=== PATIENT | female | born 1955 | race Caucasian/White ===

== ENCOUNTER → 2018-03-16 08:33 | Outpatient (CLI) | payer OTHER, SELFPAY ==
--- NOTE | 2018-03-16 | DI.MG.S_ITS ---
BILATERAL DIGITAL SCREENING MAMMOGRAM 3D/2D WITH CAD: 03/16/2018 CLINICAL: Routine screening. Family history of breast cancer. Comparison is made to exams dated: 01/29/2017 mammogram, 01/03/2016 mammogram, and 12/27/2014 mammogram - [facility]. There are scattered fibroglandular elements in both breasts. Current study was also evaluated with a Computer Aided Detection (CAD) system. No significant masses, calcifications, or other findings are seen in either breast. There has been no significant interval change. IMPRESSION: NEGATIVE There is no mammographic evidence of malignancy. A 1 year screening mammogram is recommended. This exam was interpreted at Station ID: [id number]. NOTE: For mammograms, a report in lay terms will be sent to the patient. Approximately 15% of breast malignancies will not be visualized mammographically. In the management of a palpable breast mass, a negative mammogram must not discourage biopsy of a clinically suspicious lesion. Electronically Signed By: Ander ortiz/polly:03/16/2018 09:26:04 letter sent: Normal Exam ACR BI-RADS Category 1: Negative [id number]
== END ==
PROVIDERS: Family Provider Family Medicine; PCP Family Medicine; Visit Provider Family Medicine
DX: Z12.31 Encounter for screening mammogram for malignant neoplasm of breast (principal); Z80.3 Family history of malignant neoplasm of breast
CPT/HCPCS: 77063; 77067

== ENCOUNTER 2018-08-09 19:58 | Inpatient (IN) | payer OTHER, SELFPAY ==
--- NOTE | 2018-08-09 | DI.RAD.S_ITS ---
PROCEDURE: XR PELVIS 1-2V INDICATIONS: fall, left femur fracture TECHNIQUE: 2 view(s) of the pelvis acquired. COMPARISON: None. FINDINGS: Bones: Left femoral shaft fracture with overriding and displacement. No acute pelvic fractures or dislocations. Subacute to chronic left pelvic fracture at the junction between the acetabulum and ischium.. Soft tissues: Visualized bowel gas pattern is normal. No suspicious soft tissue calcifications. IMPRESSION: Left femoral shaft fracture. Subacute left anterior pelvic fracture. No acute pelvic fractures or dislocations. Dictated by: Herb Rodriguez M.D. on 08/09/2018 at 21:16 Approved by: Herb Rodriguez M.D. on 08/09/2018 at 21:17
[2018-08-09 20:07] VITALS: BP 155/76; PULSE 88; RESP 22; TEMP 36.6; O2SAT 95; BMI 166.5
--- NOTE | 2018-08-09 20:28 | PC.NURSE ---
patient with shortening and internal rotation of LLE. +mid shaft left femur deformity. Movement limited by pain only. Pt states she does not want anything for pain at this time. Also c/o right shoulder pain. Pt with good movement of right shoulder and CMS intact in RUE.
--- NOTE | 2018-08-09 20:39 | DI.RAD.S_ITS ---
PROCEDURE: XR SHOULDER RT MIN 2V INDICATIONS: fall TECHNIQUE: 2 views of the shoulder were acquired. COMPARISON: None. FINDINGS: Bones: No shoulder fractures or dislocations. Mildly displaced acute fractures of the posterior lateral right third and fourth ribs. No suspicious bony lesions. Visualized ribs appear intact. Soft tissues: No suspicious soft tissue calcifications. IMPRESSION: No shoulder fracture. 2 right rib fractures. Dictated by: Herb Rodriguez M.D. on 08/09/2018 at 21:21 Approved by: Herb Rodriguez M.D. on 08/09/2018 at 21:22
--- NOTE | 2018-08-09 20:39 | DI.RAD.S_ITS ---
PROCEDURE: XR FEMUR LT MIN 2V INDICATIONS: fall TECHNIQUE: AP and lateral views of the femur were acquired. COMPARISON: None. FINDINGS: Bones: Mid shaft femoral fracture with displacement and overriding. Subacute left anterior pelvic fracture at the junction between the acetabulum and left ischium. Soft tissues: No suspicious soft tissue calcifications or masses. IMPRESSION: Acute mid shaft femoral fracture with displacement and overriding. Subacute left anterior pelvic fracture. Dictated by: Herb Rodriguez M.D. on 08/09/2018 at 21:20 Approved by: Herb Rodriguez M.D. on 08/09/2018 at 21:21
[2018-08-09 21:13] LABS: Blood Urea Nitrogen 27 mg/dL (7-17); Calcium 9.3 mg/dL (8.4-10.2); Carbon Dioxide 26 mmol/L (22-32); Chloride 104 mmol/L (98-107); Estimated Glomerular Filt Rate > 60.0 mL/min (>60); Glucose 115 mg/dL (80-110); HEMOLYSIS 40 (0-50); Potassium 3.8 mmol/L (3.4-5.1); Sodium 139 mmol/L (137-145)
--- NOTE | 2018-08-09 21:16 | ED.FALL ---
HPI - Fall General Chief Complaint: Fall Stated Complaint: GLF Time Seen by Provider: 08/09/18 20:03 Source: patient, family and EMS Mode of arrival: EMS Limitations: no limitations History of Present Illness HPI Narrative: 63-year-old female nonsmoker, with history of osteoporosis and otherwise healthy presents with a chief complaint of severe left hip and right shoulder pain after trip and fall and from ground level just prior to arrival in her kitchen She denies any head neck or back pain. She has significant pain with any range of motion but denies any numbness, tingling or weakness she denies any prodromal symptoms such as dizziness, weakness or lightheadedness nor any chest pain or palpitations prior to the fall. She purely tripped MD complaint: fall Onset (ago): minute(s) Fall from: standing Fall witnessed: yes, by family Place fall occurred: home Prolonged down time: no Symptoms prior to fall: none Context: tripped/slipped Location of injury - extremities: Left: thigh Severity: moderate Quality: sharp Associated symptoms (after fall): denies Related Data Home Medications Medication Instructions Recorded Confirmed celecoxib 200 mg PO BID 08/09/18 08/09/18 gabapentin 300 mg PO ONCE HS 08/09/18 08/09/18 Allergies Allergy/AdvReac Type Severity Reaction Status Date / Time amoxicillin Allergy Intermediate Rash Verified 08/10/18 15:47 azithromycin Allergy Intermediate Rash Verified 08/10/18 15:47 latex Allergy Intermediate Rash Verified 08/10/18 15:47 Review of Systems Constitutional Denies chills, Denies fever(s), Denies lethargy and Denies weakness Eyes Denies change in vision, Denies eye discharge, Denies irritation and Denies loss of vision ENT Ears, Nose, Mouth, and Throat: Denies change in voice, Denies neck pain and Denies sore throat Cardiovascular Denies chest pain, Denies irregular heart rhythm, Denies lightheadedness, Denies palpitations, Denies dyspnea, Denies dyspnea on exertion and Denies orthopnea Respiratory Denies cough, Denies dyspnea, Denies dyspnea on exertion and Denies wheezing Gastrointestinal Gastrointestinal: Denies abdominal pain, Denies change in bowel habits, Denies diarrhea, Denies nausea and Denies vomiting Genitourinary Denies hematuria, Denies flank pain, Denies urinary incontinence and Denies urinary urgency Musculoskeletal Reports joint swelling, Reports limited range of motion and Denies neck pain Integumentary/Breasts Denies pruritus, Denies erythema, Denies rash and Denies wounds Neurologic Denies confusion, Denies loss of vision and Denies weakness Psychiatric Denies anxiety, Denies confusion, Denies depression, Denies homicidal ideation and Denies suicidal ideation Endocrine Denies palpitations Hematologic/Lymphatic Denies easy bruising Allergic/Immunologic Denies wheezing Exam Narrative Exam Narrative: GENERAL: 63-year-old female appears younger than her stated age, resting surprisingly comfortably, alert and oriented with GCS 15 HEAD: Atraumatic. Normocephalic. No temporal or scalp tenderness. EYES: Pupils equal round and reactive. Extraocular motions intact. No scleral icterus. No injection or drainage. ENT: Nose without bleeding, purulent drainage or septal hematoma. Throat without erythema, tonsillar hypertrophy or exudate. Uvula midline. Airway patent. NECK: Trachea midline. No JVD or lymphadenopathy. Supple, nontender, no meningeal signs. CARDIOVASCULAR: Regular rate and rhythm without murmurs, gallops, or rubs. Mild tenderness to palpation right-sided ribs. RESPIRATORY: Clear to auscultation. Breath sounds equal bilaterally. No wheezes, rales, or rhonchi. GASTROINTESTINAL: Abdomen soft, non-tender, nondistended. No hepato-splenomegaly, or palpable masses. No guarding. EXTREMITIES: Significant pain with palpation of left medial thigh and some external rotation. No pain to palpation of hip or knee. Closed with intact sensation and pulses. Patient has some pain of her right shoulder but full range of motion. BACK: Nontender without deformity or crepitance. No flank tenderness. NEURO: AOx3. SKIN: No rash or erythema. Initial Vital Signs Initial Vital Signs: Vital Signs Temperature 97.8 F 08/09/18 20:07 Pulse Rate 88 08/09/18 20:07 Respiratory Rate 22 08/09/18 20:07 Blood Pressure 155/76 H 08/09/18 20:07 Pulse Oximetry 95 08/09/18 20:07 [facility] Medical History Degenerative joint disease (Acute) History of basal cell carcinoma (Acute) Migraine syndrome (Acute) Osteopenia (Acute) Raynaud's syndrome (Acute) Surgical History H/O knee surgery (Acute) H/O oral surgery (Acute) H/O sinus surgery (Acute) Family History Father Cancer Hypertension Diverticulitis Mother Hypertension Other Heart disease Rheumatoid arthritis Social History household members: spouse Smoking Status: Never smoker alcohol intake: never Family History Father Cancer Hypertension Diverticulitis Mother Hypertension Other Heart disease Rheumatoid arthritis Social History household members: spouse Smoking Status: Never smoker alcohol intake: never Course Orders Ordered: ED Orders 08/10/18 20:34 Hemoglobin and Hematocrit Stat 08/10/18 21:55 Consult to Discharge Planning Routine Consult to Physical Therapy Evaluate & Treat Consult to Respiratory Therapy Evaluate & Treat 08/11/18 05:00 Complete Blood Count NO DIFF Routine Acetaminophen (Tylenol) 975 mg PO TID [facility] Al Hydrox/Mg Hydrox/Simethicone (Maalox Plus) 30 ml PO QID PRN PRN Reason: Dyspepsia Aspirin (Aspirin Ec) 81 mg PO BID [facility] Last Admin: 08/10/18 22:46 Dose: 81 mg Docusate Sodium (Colace) 100 mg PO BID [facility] Last Admin: 08/10/18 22:46 Dose: 100 mg Hydromorphone HCl (Dilaudid) 2 mg PO Q3H PRN PRN Reason: Pain, Severe (7-10) Lactated Ringer's (Lactated Ringers) 1,000 mls @ 42 mls/hr IV NOW ONE Stop: 08/11/18 16:51 Last Admin: 08/10/18 19:33 Dose: 42 mls/hr Infusion: 08/10/18 19:32 Dose: 0 mls/hr Admin: 08/10/18 15:30 Dose: 42 mls/hr Cefazolin Sodium/Dextrose (Ancef) 2 gm in 100 mls @ 200 mls/hr IV Q8H [facility] Stop: 08/11/18 10:29 Magnesium Hydroxide (Milk Of Magnesia) 30 ml PO BEDTIME [facility] Ondansetron HCl (Zofran Odt) 4 mg PO Q4HR PRN PRN Reason: Nausea And Vomiting Ondansetron HCl (Zofran) 4 mg IV Q4HR PRN PRN Reason: Nausea And Vomiting Oxycodone HCl (Percolone) 5 mg PO Q3HR PRN PRN Reason: Pain, Moderate (4-6) Last Admin: 08/10/18 22:46 Dose: 5 mg Polyethylene Glycol (Miralax) 17 gm PO DAILY MANDY Discontinued Medications Acetaminophen (Tylenol) 650 mg PO Q6HR PRN PRN Reason: As Needed for Fever/Mild Pain Hydrocodone Bitart/Acetaminophen ([place] 5/325) 1 tab PO Q4HR PRN PRN Reason: Pain, Moderate (4-6) Al Hydrox/Mg Hydrox/Simethicone (Maalox Plus) 30 ml PO Q6HR PRN PRN Reason: Dyspepsia Bupivacaine HCl/Epinephrine Bitart (Sensorcaine 0.5% W/ Epi (Pf)) 30 ml INJ NOW ONE Stop: 08/10/18 20:06 Last Admin: 08/10/18 20:05 Dose: 30 ml Bupivacaine Liposome (Exparel) 266 mg INJ NOW ONE Stop: 08/10/18 20:06 Last Admin: 08/10/18 20:06 Dose: 266 mg Calcium Carbonate (Tums) 1,000 mg PO Q4HR PRN PRN Reason: Dyspepsia Fentanyl (Sublimaze) 50 mcg IV Q5MIN PRN PRN Reason: Pain, Moderate (4-6) Gabapentin (Neurontin) 300 mg PO BEDTIME [facility] Last Admin: 08/10/18 22:51 Dose: Not Given Hydromorphone HCl (Dilaudid) 0.5 mg IV NOW ONE Stop: 08/09/18 22:57 Last Admin: 08/09/18 23:08 Dose: 0.5 mg Hydromorphone HCl (Dilaudid) 0.5 mg IV NOW ONE Stop: 08/10/18 00:31 Last Admin: 08/10/18 01:04 Dose: 0.5 mg Hydromorphone HCl (Dilaudid) 0.5 mg IV Q2H PRN PRN Reason: Pain, Severe (7-10) Last Admin: 08/10/18 05:59 Dose: 0.5 mg Hydromorphone HCl (Dilaudid) 1 mg IV Q4H PRN PRN Reason: Pain, Severe (7-10) Last Admin: 08/10/18 11:22 Dose: 1 mg Hydromorphone HCl (Dilaudid) 0.25 mg IV Q5MIN PRN PRN Reason: Pain, Mild (1-3) Sodium Chloride (Normal Saline 0.9%) 1,000 mls @ 125 mls/hr IV CONT MANDY Last Admin: 08/10/18 08:31 Dose: 125 mls/hr Infusion: 08/10/18 08:31 Dose: 125 mls/hr Admin: 08/10/18 00:45 Dose: 125 mls/hr HYDROMORPHONE FLOOR CLEANER (6MG/30ML) (Dilaudid Plastic Cutter (6mg/30ml)) 6 mg in 30 mls @ 0 mls/hr IV Q8HR PRN PRN Reason: Pain, Severe (7-10) Dextrose/Sodium Chloride (Dextrose 5%-0.45% Ns) 1,000 mls @ 250 mls/hr IV CONT [facility] Last Admin: 08/10/18 14:35 Dose: 250 mls/hr Infusion: 08/10/18 13:56 Dose: 250 mls/hr Admin: 08/10/18 09:56 Dose: 250 mls/hr Cefazolin Sodium/Dextrose (Ancef) 2 gm in 100 mls @ 200 mls/hr IV NOW ONE Stop: 08/10/18 18:11 Last Infusion: 08/10/18 17:00 Dose: 0 mls/hr Admin: 08/10/18 16:50 Dose: 200 mls/hr Lactated Ringer's (Lactated Ringers) 1,000 mls @ 500 mls/hr IV BOLUS ONE Stop: 08/10/18 22:22 Last Infusion: 08/10/18 21:59 Dose: 0 mls/hr Admin: 08/10/18 20:38 Dose: 500 mls/hr Meperidine HCl (Demerol) 25 mg IV Q5MIN PRN PRN Reason: Pain or shivering Meperidine HCl (Demerol) 100 mg IV NOW ONE Stop: 08/10/18 20:43 Last Admin: 08/10/18 20:43 Dose: 25 mg Metoclopramide HCl (Reglan) 10 mg IV NOW PRN PRN Reason: Nausea And Vomiting Morphine Sulfate (Morphine) 2 mg IV Q4HR PRN PRN Reason: Pain, Moderate (4-6) Last Admin: 08/10/18 10:00 Dose: 2 mg Naloxone HCl (Narcan) 0.2 mg IV Q2MIN PRN; Protocol PRN Reason: Opiate Reversal Ondansetron HCl (Zofran) 4 mg IV NOW ONE Stop: 08/09/18 23:05 Last Admin: 08/09/18 23:08 Dose: 4 mg Ondansetron HCl (Zofran) 4 mg IV Q8HR PRN PRN Reason: Nausea And Vomiting Ondansetron HCl (Zofran Odt) 4 mg PO Q8HR PRN PRN Reason: Nausea And Vomiting Ondansetron HCl (Zofran) 4 mg IV NOW PRN PRN Reason: Nausea And Vomiting Consultations Consultation #1: Dr. Carmona (Ortho) happy to have on her service and will take to the OR tomorrow, but recommends admission to medical service. No traction needed. Consultation #2: Dr. Jeter happy to accept patient on behalf of Dr. Stockton. Vital Signs - 8 hr 08/10/18 15:38 08/10/18 20:15 08/10/18 20:16 Temperature 100.7 F H 98.5 F Pulse Rate 81 80 80 Respiratory Rate 18 19 13 Blood Pressure 149/73 H 70/34 L 75/36 L Pulse Oximetry 98 95 93 08/10/18 20:18 08/10/18 20:20 08/10/18 20:25 Temperature Pulse Rate 86 91 H 92 H Respiratory Rate 13 11 L 14 Blood Pressure 76/41 L 105/53 L 106/54 L Pulse Oximetry 93 92 93 08/10/18 20:30 08/10/18 20:40 08/10/18 20:55 Temperature 98.6 F 98.6 F 97.8 F Pulse Rate 97 H 99 H 102 H Respiratory Rate 16 17 12 Blood Pressure 114/55 L 127/60 109/59 L Pulse Oximetry 93 94 95 08/10/18 21:05 08/10/18 21:20 08/10/18 21:45 Temperature 97.8 F 97.7 F 98 F Pulse Rate 93 H 91 H 91 H Respiratory Rate 14 12 18 Blood Pressure 112/55 L 118/57 L 120/69 Pulse Oximetry 95 95 93 08/10/18 22:15 Temperature 98 F Pulse Rate 90 Respiratory Rate 18 Blood Pressure 116/71 Pulse Oximetry 93 - Fall Lab Data Result diagrams: 08/10/18 20:34 08/09/18 20:15 Lab Results 08/09/18 08/09/18 08/09/18 Range/Units 20:15 20:15 20:15 WBC 7.3 (4.5-11.0) X10^3/uL RBC 4.11 (4.0-5.2) X10^6/uL Hgb 13.3 (12.0-16.0) g/dL Hct 39.9 (36-46) % MCV 97.1 (80-100) fL MCH 32.4 (26-34) PG MCHC 33.4 (30-36) % RDW 13.4 (11.6-14.8) % Plt Count 240 (150-400) X10^3/uL Neut % (Auto) 40.6 L (50-75) % Lymph % (Auto) 46.6 H (25-40) % Overton % (Auto) 9.7 (3-14) % Eos % (Auto) 2.5 (2-4) % Baso % (Auto) 0.6 (0-2) % Neut # (Auto) 3000 (5380-0848) /uL Lymph # (Auto) 3400 (9184-3215) /uL Overton # (Auto) 700 (0-900) /uL Eos # (Auto) 200 (0-450) /uL Baso # (Auto) 0 (0-100) /uL Sodium 139 (137-145) mmol/L Potassium 3.8 (3.4-5.1) mmol/L Chloride 104 (98-107) mmol/L Carbon Dioxide 26 (22-32) mmol/L BUN 27 H (7-17) mg/dL Creatinine 0.60 (0.52-1.04) mg/dL Estimated GFR > 60.0 (>60) mL/min BUN/Creatinine Ratio 45.0 H (6-22) Glucose 115 H (80-110) mg/dL Calcium 9.3 (8.4-10.2) mg/dL Blood Type A Negative Antibody Screen Negative 08/10/18 Range/Units 20:34 WBC (4.5-11.0) X10^3/uL RBC (4.0-5.2) X10^6/uL Hgb 10.0 L (12.0-16.0) g/dL Hct 30.6 L (36-46) % MCV (80-100) fL MCH (26-34) PG MCHC (30-36) % RDW (11.6-14.8) % Plt Count (150-400) X10^3/uL Neut % (Auto) (50-75) % Lymph % (Auto) (25-40) % Overton % (Auto) (3-14) % Eos % (Auto) (2-4) % Baso % (Auto) (0-2) % Neut # (Auto) (0144-8896) /uL Lymph # (Auto) (2617-7892) /uL Overton # (Auto) (0-900) /uL Eos # (Auto) (0-450) /uL Baso # (Auto) (0-100) /uL Sodium (137-145) mmol/L Potassium (3.4-5.1) mmol/L Chloride (98-107) mmol/L Carbon Dioxide (22-32) mmol/L BUN (7-17) mg/dL Creatinine (0.52-1.04) mg/dL Estimated GFR (>60) mL/min BUN/Creatinine Ratio (6-22) Glucose (80-110) mg/dL Calcium (8.4-10.2) mg/dL Blood Type Antibody Screen Imaging Data Shoulder Xray: Radiologist's impression: [address] [address] XRay Report Signed Patient: Chen Lora [facility]#: [id number] : 6Acct:[id number] Age/Sex: 63 / FDate of Service: 08/09/18 Loc: ED Accession Number: [id number] Procedure: XR shoulder RT min 2V Ordering Provider: Jean Pierre Mcdonald D.O. PROCEDURE: XR SHOULDER RT MIN 2V INDICATIONS: fall TECHNIQUE: 2 views of the shoulder were acquired. COMPARISON: None. FINDINGS: Bones: No shoulder fractures or dislocations. Mildly displaced acute fractures of the posterior lateral right third and fourth ribs. No suspicious bony lesions. Visualized ribs appear intact. Soft tissues: No suspicious soft tissue calcifications. IMPRESSION: No shoulder fracture. 2 right rib fractures. Dictated by: Herb Rodriguez M.D. on 08/09/2018 at 21:21 Approved by: Herb Rodriguez M.D. on 08/09/2018 at 21:22 Pelvis Xray: Radiologist's impression: [address] [address] XRay Report Signed Patient: Chen Lora [facility]#: [id number] : [id number] Age/Sex: 63 / FDate of Service: 08/09/18 Loc: ED Accession Number: [id number] Procedure: XR pelvis 1-2V Ordering Provider: Jean Pierre Mcdonald D.O. PROCEDURE: XR PELVIS 1-2V INDICATIONS: fall, left femur fracture TECHNIQUE: 2 view(s) of the pelvis acquired. COMPARISON: None. FINDINGS: Bones: Left femoral shaft fracture with overriding and displacement. No acute pelvic fractures or dislocations. Subacute to chronic left pelvic fracture at the junction between the acetabulum and ischium.. Soft tissues: Visualized bowel gas pattern is normal. No suspicious soft tissue calcifications. IMPRESSION: Left femoral shaft fracture. Subacute left anterior pelvic fracture. No acute pelvic fractures or dislocations. Dictated by: Herb Rodriguez M.D. on 08/09/2018 at 21:16 Approved by: Herb Rodriguez M.D. on 08/09/2018 at 21:17 Femur Xray: Radiologist's impression: [address] [address] XRay Report Signed Patient: Chen Lora [facility]#: [id number] : [id number] Age/Sex: 63 / FDate of Service: 08/09/18 Loc: ED Accession Number: [id number] Procedure: XR femur LT min 2V Ordering Provider: Jean Pierre Mcdonald D.O. PROCEDURE: XR FEMUR LT MIN 2V INDICATIONS: fall TECHNIQUE: AP and lateral views of the femur were acquired. COMPARISON: None. FINDINGS: Bones: Mid shaft femoral fracture with displacement and overriding. Subacute left anterior pelvic fracture at the junction between the acetabulum and left ischium. Soft tissues: No suspicious soft tissue calcifications or masses. IMPRESSION: Acute mid shaft femoral fracture with displacement and overriding. Subacute left anterior pelvic fracture. Dictated by: Herb Rodriguez M.D. on 08/09/2018 at 21:20 Approved by: Herb Rodriguez M.D. on 08/09/2018 at 21:21 Discharge Plan Departure Patient Disposition: Admitted As Inpatient Clinical Impression: Closed left femoral fracture Qualifiers: Encounter type: initial encounter Femur location: shaft Fracture morphology: transverse Fracture alignment: displaced Qualified Code(s): S72.322A - Displaced transverse fracture of shaft of left femur, initial encounter for closed fracture Right rib fracture Qualifiers: Encounter type: initial encounter Rib fracture type: multiple ribs Fracture type: closed Qualified Code(s): S22.41XA - Multiple fractures of ribs, right side, initial encounter for closed fracture Discharge Date/Time: 08/10/18 00:30 Interventions: ED Discharge Assessment Last Done: 08/10/18 00:22 Admit Date/Time: 08/10/18 00:36 Admit Provider: Silke Jeter
[2018-08-09 21:17] VITALS: BP 154/107; PULSE 86; RESP 16; O2SAT 97
[2018-08-09 21:21] LABS: Add Manual Diff / Slide Review NO; Basophils Absolute Auto 0 /uL (0-100); Basophils Percent Auto 0.6 % (0-2); Eosinophils Absolute Auto 200 /uL (0-450); Eosinophils Percent Auto 2.5 % (2-4); Hematocrit 39.9 % (36-46); Hemoglobin 13.3 g/dL (12.0-16.0); Lymphocytes Absolute Auto 3400 /uL (1100-4500); Lymphocytes Percent Auto 46.6 % (25-40); Mean Corpuscular HGB Conc 33.4 % (30-36); Mean Corpuscular Hemoglobin 32.4 PG (26-34); Mean Corpuscular Volume 97.1 fL (80-100); Monocytes Absolute Auto 700 /uL (0-900); Monocytes Percent Auto 9.7 % (3-14); Neutrophils Absolute Auto 3000 /uL (1500-7000); Neutrophils Percent Auto 40.6 % (50-75); Platelet Count 240 X10^3/uL (150-400); Red Blood Cell Count 4.11 X10^6/uL (4.0-5.2); Red Cell Distribution Width 13.4 % (11.6-14.8); White Blood Cell Count 7.3 X10^3/uL (4.5-11.0)
[2018-08-09 22:26] VITALS: BP 151/83; PULSE 88; RESP 16; O2SAT 98
--- NOTE | 2018-08-09 22:28 | PC.NURSE ---
16 Fr nair catheter placed with sterile technique. Patient states after the fact I forgot to tell someone that I'm allergic to lasix. Nair catheter removed and latex free nair catheter placed. Pt denies any sx of an allergic reaction, states she only gets skin irritation with Latex. Patient's allergies updated in computer. Pt remains free of skin irritation. 225mL of clear yellow urine out.
[2018-08-09 23:00] VITALS: BP 134/76; PULSE 86; RESP 19; O2SAT 95
[2018-08-09] MEDS: HYDROMORPHONE 1 MG INJ 0.5 MG IV (23:08)
[2018-08-09] MEDS: ONDANSETRON 4 MG/2 ML INJ IV (23:08)
[2018-08-09 23:34] VITALS: BP 106/60; PULSE 85; RESP 16; TEMP 37; O2SAT 96
[2018-08-10] VITALS (18 sets, daily range): BP systolic 70–149; BP diastolic 34–73; PULSE 66–102; RESP 11–19; TEMP 36.4–38.2; O2SAT 92–99; BMI 166.5; BMI 26.2
--- NOTE | 2018-08-10 | DI.RAD.S_ITS ---
PROCEDURE: XR FEMUR LT MIN 2V INDICATIONS: INTRAMEDULLARY NAILING FEMUR LEFT TECHNIQUE: Multiple intraoperative fluoroscopic views of the femur were acquired. COMPARISON: None. FINDINGS: Bones: Multiple intraoperative fluoroscopic views demonstrate ORIF of a femoral fracture. Fracture fragments are in anatomic alignment. IMPRESSION: Multiple intraoperative fluoroscopic views of ORIF of a left femoral fracture. Dictated by: Juana Chaparro M.D. on 08/10/2018 at 21:02 Approved by: Juana Chaparro M.D. on 08/10/2018 at 21:03
--- NOTE | 2018-08-10 | DI.RAD.S_ITS ---
PROCEDURE: XR FEMUR LT MIN 2V INDICATIONS: POST OP TECHNIQUE: 2 views of the femur were acquired. COMPARISON: None. FINDINGS: Bones: Status post ORIF of the left femoral diaphyseal fracture. Fracture fragments are in anatomic alignment. Soft tissues: Overlying postoperative changes are noted. IMPRESSION: Status post ORIF of a left femoral diaphyseal fracture. Dictated by: Juana Chaparro M.D. on 08/10/2018 at 21:08 Approved by: Juana Chaparro M.D. on 08/10/2018 at 21:09
[2018-08-10] MEDS: SODIUM CHLORIDE 0.9% 1,000 ML 125 ML IV ×2 (00:45→08:31)
[2018-08-10] MEDS: HYDROMORPHONE 1 MG INJ 0.5 MG IV (01:04)
--- NOTE | 2018-08-10 03:59 | PC.NURSE ---
Pt is AxOx4, VSS, tolerating room air. Left hip pain relieved with 0.5mg IV Dilaudid. Left leg with obvious deformity; externally rotated and shortened, bulge in left thigh. CMS+, good pedal pulses, reports some numbness in bilateral feet. Bronson is draining clear yellow urine. IVF running as ordered. Pt kept NPO for sx tomorrow. 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 Will pass this along to day shift.
[2018-08-10] MEDS: HYDROMORPHONE 0.5 MG INJ IV (05:59)
--- NOTE | 2018-08-10 08:23 | PM.PN.1 ---
Subjective Date Patient Seen: 08/10/18 Time Patient Seen: 08:23 Interval history: Patient is here hospital day 2 for left femur fracture. Pain is being well managed. She is non weight bearing. No chest pain, shortness of breath. Exam Vital Signs (past 8 hours): - 08/10/18 00:57 08/10/18 04:16 08/10/18 08:17 Temperature 97.5 F L 98.3 F 98.8 F Pulse Rate 90 70 66 Respiratory Rate 16 16 15 Blood Pressure 120/50 L 116/68 102/56 L Pulse Oximetry 94 99 95 Oxygen Delivery Method Room Air Oxygen Flow Rate 0 Narrative Exam Narrative: 63 year old female, alert and oriented in no acute distress. Shortened, rotated left lower extremity with femur deformity. Sensation intact distally. Palpable pulse. Calve soft compressible. Objective Labs Result Diagrams: 08/09/18 20:15 08/09/18 20:15 Labs: Laboratory Results - last 24 hr 08/09/18 08/09/18 08/09/18 20:15 20:15 20:15 WBC 7.3 RBC 4.11 Hgb 13.3 Hct 39.9 MCV 97.1 MCH 32.4 MCHC 33.4 RDW 13.4 Plt Count 240 Neut % (Auto) 40.6 L Lymph % (Auto) 46.6 H Beckham % (Auto) 9.7 Eos % (Auto) 2.5 Baso % (Auto) 0.6 Neut # (Auto) 3000 Lymph # (Auto) 3400 Beckham # (Auto) 700 Eos # (Auto) 200 Baso # (Auto) 0 Sodium 139 Potassium 3.8 Chloride 104 Carbon Dioxide 26 BUN 27 H Creatinine 0.60 Estimated GFR > 60.0 BUN/Creatinine Ratio 45.0 H Glucose 115 H Calcium 9.3 Blood Type A Negative Antibody Screen Negative Assessment & Plan Assessment & Plan narrative: Patient is NPO, expected to be taken to the operating room later today for femoral gabe.
--- NOTE | 2018-08-10 08:39 | P.HP_ITS ---
History of Present Illness Date Patient Seen: 08/10/18 Time Patient Seen: 08:38 Chief complaint: GLF Narrative: 63 year old female with history of osteopenia and BMI of 25.8 presents from the ED after slipping in her kitchen and falling backwards onto her right shoulder and left hip. Denies hitting her head or losing consciousness. Skin is intact. Vital signs in the ED included a temperature of 97.8?, heart rate 88, respiratory 22, blood pressure 155/76, O2 saturation 95%. Workup significant for a left midshaft femoral fracture with displacement and overriding and 2 right rib fractures. She also has a subacute left anterior pelvis fracture. CBC and BMP significant for an elevated BUN and glucose at 27 and 115, respectively. Orthopedic surgery consulting, she is scheduled for surgery today and is currently NPO. Reports pain well controlled with Dilaudid. No other acute concerns. Patient History Medical History (Updated 08/10/18 @ 08:46 by Silke Jeter MD) Degenerative joint disease (Acute) History of basal cell carcinoma (Acute) Migraine syndrome (Acute) Osteopenia (Acute) Raynaud's syndrome (Acute) Surgical History (Updated 08/10/18 @ 08:47 by Silke Jeter MD) H/O knee surgery (Acute) H/O oral surgery (Acute) H/O sinus surgery (Acute) Family History (Updated 08/10/18 @ 08:49 by Silke Jeter MD) Father Cancer Hypertension Diverticulitis Mother Hypertension Other Heart disease Rheumatoid arthritis Social History household members: spouse Smoking Status: Never smoker alcohol intake: never Family & Social History Family History (Updated 08/10/18 @ 08:49 by Silke Jeetr MD) Father Cancer Hypertension Diverticulitis Mother Hypertension Other Heart disease Rheumatoid arthritis Social History: household members spouse Prior Living Arrangements House Safety & Behavioral: Feels Safe in Current Yes Environment Been Physically Hurt or No Threatened By a Person Suicidal Ideation Description None Suicide Plan Description No Plan Tobacco & Substance use: Smoking Status Never smoker alcohol intake never Substance Use Type does not use Meds Home Medications Medication Instructions Recorded Confirmed Type celecoxib 200 mg PO BID 08/09/18 08/09/18 History gabapentin 300 mg PO ONCE HS 08/09/18 08/09/18 History Allergies Allergy/AdvReac Type Severity Reaction Status Date / Time Penicillins [PENICILLINS] Allergy Severe FACIAL/TONGUE Verified 08/09/18 23:54 SWELLING Cephalosporins Allergy Intermediate ITCHING/GENEVIEVE Verified 08/09/18 23:54 [CEPHALOSPORINS] H Latex, Natural Rubber Allergy Mild Redness of Verified 08/09/18 23:54 Skin Review of Systems Review of Systems Ten point review of systems negative except for items mentioned in HPI. Exam Vital Signs (past 8 hours): - 08/10/18 00:57 08/10/18 04:16 08/10/18 08:17 Temperature 97.5 F L 98.3 F 98.8 F Pulse Rate 90 70 66 Respiratory Rate 16 16 15 Blood Pressure 120/50 L 116/68 102/56 L Pulse Oximetry 94 99 95 Oxygen Delivery Method Room Air Oxygen Flow Rate 0 Narrative Exam Narrative: General: Alert and oriented female, appears stated age, no acute distress. HEENT: Head normocephalic/atraumatic. Pupils equal round reactive to light and accommodation, extraocular muscles intact. Tympanic membranes clear. Nasal mucosa moist, septum midline. Oral mucosa moist, no lymphadenopathy. Lungs: Clear auscultation bilaterally, no wheezes, rhonchi, or rales. CV: Normal S1 and S2 with regular rate and rhythm, no audible murmurs rubs or gallops. Abdomen: Soft, nontender, nondistended, positive bowel sounds. No organomegaly. Musculoskeletal: Right shoulder is tender with mild edema, no surrounding contusion. Range of motion limited secondary to pain. Tenderness over right 1st through 4th ribs. Left lower extremity is shortened and externally rotated with femur deformity. Range of motion limited secondary to pain. Sensation intact throughout. Right shoulder and left lower extremity strength 1/5. Extremities: DTRs 2+ and symmetric. Neuro: Cranial nerves 2-12 grossly intact, no focal deficits. Skin: Intact. Objective Labs Result Diagrams: 08/09/18 20:15 08/09/18 20:15 Labs: Laboratory Results - last 24 hr 08/09/18 08/09/18 08/09/18 20:15 20:15 20:15 WBC 7.3 RBC 4.11 Hgb 13.3 Hct 39.9 MCV 97.1 MCH 32.4 MCHC 33.4 RDW 13.4 Plt Count 240 Neut % (Auto) 40.6 L Lymph % (Auto) 46.6 H [place] % (Auto) 9.7 Eos % (Auto) 2.5 Baso % (Auto) 0.6 Neut # (Auto) 3000 Lymph # (Auto) 3400 [place] # (Auto) 700 Eos # (Auto) 200 Baso # (Auto) 0 Sodium 139 Potassium 3.8 Chloride 104 Carbon Dioxide 26 BUN 27 H Creatinine 0.60 Estimated GFR > 60.0 BUN/Creatinine Ratio 45.0 H Glucose 115 H Calcium 9.3 Blood Type A Negative Antibody Screen Negative Assessment & Plan Assessment & Plan narrative: 1. Left midshaft humeral fracture with displacement and overriding 2. Rib fractures x 2, right 3. Subacute left anterior pelvic fracture 4. Osteoporosis, new diagnosis, secondary to fragility fractures from standing height as noted above 5. Chronic medical conditions including degenerative joint disease, Raynaud syndrome, and migraine syndromes. Patient will be admitted with narocotic pain control and kept NPO until orthopedic consult and definitive treatment. Disccussed need for outpatient workup for secondary causes of osteoporosis including DXA scan and labs when patient is out of acute phase. Will hold home celecoxib in advance of surgery, may continue gabapentin 300 mg p.o. q.h.s. per routine. SCDs for DVT prophylaxis in advance of surgery. Patient is a full code.
[2018-08-10] MEDS: DEXTROSE 5%-0.45% NS 1,000 ML 250 ML IV ×2 (09:56→14:35)
[2018-08-10] MEDS: MORPHINE 2 MG/ML INJ IV (10:00)
--- NOTE | 2018-08-10 10:44 | PC.NURSE ---
Assess- Pt is a&Ox3. She denies pain or discomfort. Up with 1pa and walker to use the bathroom. into see patient now and she should be discharging home later today. BS cta, high 90s ra.
[2018-08-10] MEDS: HYDROMORPHONE 1 MG INJ IV (11:22)
--- NOTE | 2018-08-10 11:27 | PC.NURSE ---
Addendum entered by Ann Marie Mejía R.N. 08/10/18 13:43: Pt tolerated 1mg of dilaudid well. She denies pain and states that her level is down to a 2/10 Original Note: Pt lying flat on her back, she does not want to be repositioned. Given morphine 2mg and this did not help pts pain. Called and got an order for 1mg of iv dilaudid every 4 hours. Just gave this to patient, will recheck pain level score in half an hour.
--- NOTE | 2018-08-10 15:18 | PC.NURSE ---
shift overview 1510 pt transfered via bed off of unit by surgical nurses for hip repair.
--- NOTE | 2018-08-10 15:22 | CM.DANOTE ---
Addendum entered by Lia Moss LPN 08/10/18 15:42: Did do a bit of checking on [employer] status as pt may need this setting and the holiday weekend is in process tomorrow. [facility]/ASHWINI Asencio and SV confirms that they do have the [employer] contract. [facility]/Sharri will confer with Mari and let us know. Will discuss with pt tomorrow if indicated and after PT/OT sees her. Original Note: Discharge Planning/Care Management DCP: assessment: case received, EMR reviewed and met with pt and her Lalo. Introduced self and role. Pt is a 63 year old female who admitted to care of [facility] Team early this morning PCP: Dr. Stockton His partner Dr. Jeter saw pt today. Orthopedic team are consulting and surgery to repair pt's fractured femur is planned for later today. Payer: [employer]. Pt confirms she slipped in her kitchen and fell. No specific reason for this she says. Floor not wet etc. Lalo says he was sitting at the dinner table a few feet away and she was just about to join him. Pt also has 2 rib fractures and a pelvic fracture. P: check in again tomorrow after pt has had surgery and follow for d/c issues and options. Anticipate pt will be seeing OT and PT. CM Discharge Assessment Start: 08/10/18 15:19 Freq: Status: Active Protocol: Document 08/10/18 15:19 ITV (Rec: 08/10/18 15:21 ITV [id number]) Discharge Planning Assessment Advance Directives? No History Provided By Patient Family Member Medical Record Has Patient been admitted in last 30 No days? Prior Living Arrangements House Household Members spouse Independent with ADL's Yes Is patient alert and oriented? Yes Whiteboard Updated in Patient Room with Yes name and ext. # of Humane Officer Review Status In Process
[2018-08-10] MEDS: LACTATED RINGERS 1,000 ML 42 ML IV ×2 (15:30→19:33)
--- NOTE | 2018-08-10 16:34 | PM.HP.1 ---
History of Present Illness Date Patient Seen: 08/10/18 Time Patient Seen: 16:35 Chief complaint: GLF Narrative: This is a pleasant 63-year-old female who has been on Fosamax for 3 years who had a ground level fall in her kitchen and noted the acute onset of left thigh pain. She has a known history of osteoporosis. She also notes some moderate right shoulder pain. She denies a history of previous pelvic injuries or pelvic fractures. Patient History Medical History Degenerative joint disease (Acute) History of basal cell carcinoma (Acute) Migraine syndrome (Acute) Osteopenia (Acute) Raynaud's syndrome (Acute) Surgical History H/O knee surgery (Acute) H/O oral surgery (Acute) H/O sinus surgery (Acute) Family History (Updated 08/10/18 @ 08:49 by Silke Jeter MD) Father Cancer Hypertension Diverticulitis Mother Hypertension Other Heart disease Rheumatoid arthritis Social History household members: spouse Smoking Status: Never smoker alcohol intake: never Family & Social History Family History Father Cancer Hypertension Diverticulitis Mother Hypertension Other Heart disease Rheumatoid arthritis Social History: household members spouse Prior Living Arrangements House Safety & Behavioral: Feels Safe in Current Yes Environment Been Physically Hurt or No Threatened By a Person Suicidal Ideation Description None Suicide Plan Description No Plan Tobacco & Substance use: Smoking Status Never smoker alcohol intake never Substance Use Type does not use Meds Home Medications Medication Instructions Recorded Confirmed Type celecoxib 200 mg PO BID 08/09/18 08/09/18 History gabapentin 300 mg PO ONCE HS 08/09/18 08/09/18 History Allergies Allergy/AdvReac Type Severity Reaction Status Date / Time amoxicillin Allergy Intermediate Rash Verified 08/10/18 15:47 azithromycin Allergy Intermediate Rash Verified 08/10/18 15:47 latex Allergy Intermediate Rash Verified 08/10/18 15:47 Review of Systems Review of Systems She was not short of breath prior to her fall, she denies a history of chest pain dizziness lightheadedness or other symptoms prior to her fall. She has not had any recent GI symptoms Exam Vital Signs (past 8 hours): - 08/10/18 12:03 08/10/18 15:38 Temperature 99.3 F 100.7 F H Pulse Rate 70 81 Respiratory Rate 15 18 Blood Pressure 127/67 149/73 H Pulse Oximetry 97 98 Oxygen Delivery Method Room Air Oxygen Flow Rate 0 Narrative Exam Narrative: HEENT is benign, lungs are clear cor regular rate and rhythm, abdomen soft and benign, her right shoulder there is moderate weakness of forward flexion against resistance she does not have specific crepitation with external rotation of about 50? internal rotation to the belt line or active forward flexion, there is no palpable deformity of her right shoulder there is moderate bruising on the dorsum of her right hand she is able to fire her finger flexors and extensors without difficulty. Her left lower extremity is remarkable for marked shortening of the left leg she has adequate capillary refill she can fire her toe flexors and extensors with reasonable strength and her foot is warm Objective Labs Result Diagrams: 08/09/18 20:15 08/09/18 20:15 Labs: Laboratory Results - last 24 hr 08/09/18 08/09/18 08/09/18 20:15 20:15 20:15 WBC 7.3 RBC 4.11 Hgb 13.3 Hct 39.9 MCV 97.1 MCH 32.4 MCHC 33.4 RDW 13.4 Plt Count 240 Neut % (Auto) 40.6 L Lymph % (Auto) 46.6 H [place] % (Auto) 9.7 Eos % (Auto) 2.5 Baso % (Auto) 0.6 Neut # (Auto) 3000 Lymph # (Auto) 3400 [place] # (Auto) 700 Eos # (Auto) 200 Baso # (Auto) 0 Sodium 139 Potassium 3.8 Chloride 104 Carbon Dioxide 26 BUN 27 H Creatinine 0.60 Estimated GFR > 60.0 BUN/Creatinine Ratio 45.0 H Glucose 115 H Calcium 9.3 Blood Type A Negative Antibody Screen Negative her x-rays show that of left midshaft femur fracture with gross displacement, her right shoulder shows proximal subluxation of her humeral head consistent with probable rotator cuff pathology but no acute fracture, her pelvis shows a calcification along the inferior pubic rami on the left which is suggestive of a an old fracture with callus formation Assessment & Plan Assessment & Plan narrative: Impression is grossly displaced left midshaft femur fracture. Two right shoulder injury probable rotator cuff injury. Three right hand contusion no x-rays yet. For calcification along the inferior pubic rami on the left most consistent with a probable old fracture. Recommendations and plan is in detail.
[2018-08-10] MEDS: CEFAZOLIN 2 GM/100 ML FROZ.PIGGY IV (16:50)
--- NOTE | 2018-08-10 17:37 | SUR.OPER ---
Head on pillow. Supine on fracture table with operative leg secured in traction. Other leg secured in padded stirrup. Arms across chest, secured with sheet.
[2018-08-10] MEDS: BUPIVACAINE 0.5% W/ EPI (PF) VIAL 30 ML INJ (20:05)
[2018-08-10] MEDS: BUPIVACAINE LIPOSOME 266 MG/20 ML VIAL INJ (20:06)
[2018-08-10] MEDS: LACTATED RINGERS 1,000 ML 500 ML IV (20:38)
[2018-08-10 20:40] LABS: Hematocrit 30.6 % (36-46)
[2018-08-10] MEDS: MEPERIDINE 100 MG/ML INJ IV (20:43)
--- NOTE | 2018-08-10 21:59 | SUR.OPER ---
Pt. foot briefly came out of traction boot while Dr. Carmona holding thigh and I was pulling fine traction, very quickly lifted foot up and placed back in boot and secured with more coban
[2018-08-10] MEDS: DOCUSATE 100 MG CAPSULE PO (22:46)
[2018-08-10] MEDS: ASPIRIN EC 81 MG TABLET PO (22:46)
[2018-08-10] MEDS: OXYCODONE IR 5 MG TABLET PO (22:46)
--- NOTE | 2018-08-10 23:30 | ED_ITS ---
HPI - Fall General Chief Complaint: Fall Stated Complaint: GLF Time Seen by Provider: 08/09/18 20:03 Source: patient, family and EMS Mode of arrival: EMS Limitations: no limitations History of Present Illness HPI Narrative: 63-year-old female nonsmoker, with history of osteoporosis and otherwise healthy presents with a chief complaint of severe left hip and right shoulder pain after trip and fall and from ground level just prior to arrival in her kitchen She denies any head neck or back pain. She has significant pain with any range of motion but denies any numbness, tingling or weakness she denies any prodromal symptoms such as dizziness, weakness or lightheadedness nor any chest pain or palpitations prior to the fall. She purely tripped MD complaint: fall Onset (ago): minute(s) Fall from: standing Fall witnessed: yes, by family Place fall occurred: home Prolonged down time: no Symptoms prior to fall: none Context: tripped/slipped Location of injury - extremities: Left: thigh Severity: moderate Quality: sharp Associated symptoms (after fall): denies Related Data Home Medications Medication Instructions Recorded Confirmed celecoxib 200 mg PO BID 08/09/18 08/09/18 gabapentin 300 mg PO ONCE HS 08/09/18 08/09/18 Allergies Allergy/AdvReac Type Severity Reaction Status Date / Time amoxicillin Allergy Intermediate Rash Verified 08/10/18 15:47 azithromycin Allergy Intermediate Rash Verified 08/10/18 15:47 latex Allergy Intermediate Rash Verified 08/10/18 15:47 Review of Systems Constitutional Denies chills, Denies fever(s), Denies lethargy and Denies weakness Eyes Denies change in vision, Denies eye discharge, Denies irritation and Denies loss of vision ENT Ears, Nose, Mouth, and Throat: Denies change in voice, Denies neck pain and Denies sore throat Cardiovascular Denies chest pain, Denies irregular heart rhythm, Denies lightheadedness, Denies palpitations, Denies dyspnea, Denies dyspnea on exertion and Denies orthopnea Respiratory Denies cough, Denies dyspnea, Denies dyspnea on exertion and Denies wheezing Gastrointestinal Gastrointestinal: Denies abdominal pain, Denies change in bowel habits, Denies diarrhea, Denies nausea and Denies vomiting Genitourinary Denies hematuria, Denies flank pain, Denies urinary incontinence and Denies urinary urgency Musculoskeletal Reports joint swelling, Reports limited range of motion and Denies neck pain Integumentary/Breasts Denies pruritus, Denies erythema, Denies rash and Denies wounds Neurologic Denies confusion, Denies loss of vision and Denies weakness Psychiatric Denies anxiety, Denies confusion, Denies depression, Denies homicidal ideation and Denies suicidal ideation Endocrine Denies palpitations Hematologic/Lymphatic Denies easy bruising Allergic/Immunologic Denies wheezing Exam Narrative Exam Narrative: GENERAL: 63-year-old female appears younger than her stated age, resting surprisingly comfortably, alert and oriented with GCS 15 HEAD: Atraumatic. Normocephalic. No temporal or scalp tenderness. EYES: Pupils equal round and reactive. Extraocular motions intact. No scleral icterus. No injection or drainage. ENT: Nose without bleeding, purulent drainage or septal hematoma. Throat without erythema, tonsillar hypertrophy or exudate. Uvula midline. Airway patent. NECK: Trachea midline. No JVD or lymphadenopathy. Supple, nontender, no meningeal signs. CARDIOVASCULAR: Regular rate and rhythm without murmurs, gallops, or rubs. Mild tenderness to palpation right-sided ribs. RESPIRATORY: Clear to auscultation. Breath sounds equal bilaterally. No wheezes, rales, or rhonchi. GASTROINTESTINAL: Abdomen soft, non-tender, nondistended. No hepato- splenomegaly, or palpable masses. No guarding. EXTREMITIES: Significant pain with palpation of left medial thigh and some external rotation. No pain to palpation of hip or knee. Closed with intact sensation and pulses. Patient has some pain of her right shoulder but full range of motion. BACK: Nontender without deformity or crepitance. No flank tenderness. NEURO: AOx3. SKIN: No rash or erythema. Initial Vital Signs Initial Vital Signs: Vital Signs Temperature 97.8 F 08/09/18 20:07 Pulse Rate 88 08/09/18 20:07 Respiratory Rate 22 08/09/18 20:07 Blood Pressure 155/76 H 08/09/18 20:07 Pulse Oximetry 95 08/09/18 20:07 [facility] Medical History Degenerative joint disease (Acute) History of basal cell carcinoma (Acute) Migraine syndrome (Acute) Osteopenia (Acute) Raynaud's syndrome (Acute) Surgical History H/O knee surgery (Acute) H/O oral surgery (Acute) H/O sinus surgery (Acute) Family History Father Cancer Hypertension Diverticulitis Mother Hypertension Other Heart disease Rheumatoid arthritis Social History household members: spouse Smoking Status: Never smoker alcohol intake: never Family History Father Cancer Hypertension Diverticulitis Mother Hypertension Other Heart disease Rheumatoid arthritis Social History household members: spouse Smoking Status: Never smoker alcohol intake: never Course Orders Ordered: ED Orders 08/10/18 20:34 Hemoglobin and Hematocrit Stat 08/10/18 21:55 Consult to Discharge Planning Routine Consult to Physical Therapy Evaluate & Treat Consult to Respiratory Therapy Evaluate & Treat 08/11/18 05:00 Complete Blood Count NO DIFF Routine Acetaminophen (Tylenol) 975 mg PO TID [facility] Al Hydrox/Mg Hydrox/Simethicone (Maalox Plus) 30 ml PO QID PRN PRN Reason: Dyspepsia Aspirin (Aspirin Ec) 81 mg PO BID [facility] Last Admin: 08/10/18 22:46 Dose: 81 mg Docusate Sodium (Colace) 100 mg PO BID [facility] Last Admin: 08/10/18 22:46 Dose: 100 mg Hydromorphone HCl (Dilaudid) 2 mg PO Q3H PRN PRN Reason: Pain, Severe (7-10) Lactated Ringer's (Lactated Ringers) 1,000 mls @ 42 mls/hr IV NOW ONE Stop: 08/11/18 16:51 Last Admin: 08/10/18 19:33 Dose: 42 mls/hr Infusion: 08/10/18 19:32 Dose: 0 mls/hr Admin: 08/10/18 15:30 Dose: 42 mls/hr Cefazolin Sodium/Dextrose (Ancef) 2 gm in 100 mls @ 200 mls/hr IV Q8H [facility] Stop: 08/11/18 10:29 Magnesium Hydroxide (Milk Of Magnesia) 30 ml PO BEDTIME [facility] Ondansetron HCl (Zofran Odt) 4 mg PO Q4HR PRN PRN Reason: Nausea And Vomiting Ondansetron HCl (Zofran) 4 mg IV Q4HR PRN PRN Reason: Nausea And Vomiting Oxycodone HCl (Percolone) 5 mg PO Q3HR PRN PRN Reason: Pain, Moderate (4-6) Last Admin: 08/10/18 22:46 Dose: 5 mg Polyethylene Glycol (Miralax) 17 gm PO DAILY MANDY Discontinued Medications Acetaminophen (Tylenol) 650 mg PO Q6HR PRN PRN Reason: As Needed for Fever/Mild Pain Hydrocodone Bitart/Acetaminophen ([place] 5/325) 1 tab PO Q4HR PRN PRN Reason: Pain, Moderate (4-6) Al Hydrox/Mg Hydrox/Simethicone (Maalox Plus) 30 ml PO Q6HR PRN PRN Reason: Dyspepsia Bupivacaine HCl/Epinephrine Bitart (Sensorcaine 0.5% W/ Epi (Pf)) 30 ml INJ NOW ONE Stop: 08/10/18 20:06 Last Admin: 08/10/18 20:05 Dose: 30 ml Bupivacaine Liposome (Exparel) 266 mg INJ NOW ONE Stop: 08/10/18 20:06 Last Admin: 08/10/18 20:06 Dose: 266 mg Calcium Carbonate (Tums) 1,000 mg PO Q4HR PRN PRN Reason: Dyspepsia Fentanyl (Sublimaze) 50 mcg IV Q5MIN PRN PRN Reason: Pain, Moderate (4-6) Gabapentin (Neurontin) 300 mg PO BEDTIME [facility] Last Admin: 08/10/18 22:51 Dose: Not Given Hydromorphone HCl (Dilaudid) 0.5 mg IV NOW ONE Stop: 08/09/18 22:57 Last Admin: 08/09/18 23:08 Dose: 0.5 mg Hydromorphone HCl (Dilaudid) 0.5 mg IV NOW ONE Stop: 08/10/18 00:31 Last Admin: 08/10/18 01:04 Dose: 0.5 mg Hydromorphone HCl (Dilaudid) 0.5 mg IV Q2H PRN PRN Reason: Pain, Severe (7-10) Last Admin: 08/10/18 05:59 Dose: 0.5 mg Hydromorphone HCl (Dilaudid) 1 mg IV Q4H PRN PRN Reason: Pain, Severe (7-10) Last Admin: 08/10/18 11:22 Dose: 1 mg Hydromorphone HCl (Dilaudid) 0.25 mg IV Q5MIN PRN PRN Reason: Pain, Mild (1-3) Sodium Chloride (Normal Saline 0.9%) 1,000 mls @ 125 mls/hr IV CONT MANDY Last Admin: 08/10/18 08:31 Dose: 125 mls/hr Infusion: 08/10/18 08:31 Dose: 125 mls/hr Admin: 08/10/18 00:45 Dose: 125 mls/hr HYDROMORPHONE MOTION PICTURES CARTOONIST (6MG/30ML) (Dilaudid Cane Loader (6mg/30ml)) 6 mg in 30 mls @ 0 mls/hr IV Q8HR PRN PRN Reason: Pain, Severe (7-10) Dextrose/Sodium Chloride (Dextrose 5%-0.45% Ns) 1,000 mls @ 250 mls/hr IV CONT [facility] Last Admin: 08/10/18 14:35 Dose: 250 mls/hr Infusion: 08/10/18 13:56 Dose: 250 mls/hr Admin: 08/10/18 09:56 Dose: 250 mls/hr Cefazolin Sodium/Dextrose (Ancef) 2 gm in 100 mls @ 200 mls/hr IV NOW ONE Stop: 08/10/18 18:11 Last Infusion: 08/10/18 17:00 Dose: 0 mls/hr Admin: 08/10/18 16:50 Dose: 200 mls/hr Lactated Ringer's (Lactated Ringers) 1,000 mls @ 500 mls/hr IV BOLUS ONE Stop: 08/10/18 22:22 Last Infusion: 08/10/18 21:59 Dose: 0 mls/hr Admin: 08/10/18 20:38 Dose: 500 mls/hr Meperidine HCl (Demerol) 25 mg IV Q5MIN PRN PRN Reason: Pain or shivering Meperidine HCl (Demerol) 100 mg IV NOW ONE Stop: 08/10/18 20:43 Last Admin: 08/10/18 20:43 Dose: 25 mg Metoclopramide HCl (Reglan) 10 mg IV NOW PRN PRN Reason: Nausea And Vomiting Morphine Sulfate (Morphine) 2 mg IV Q4HR PRN PRN Reason: Pain, Moderate (4-6) Last Admin: 08/10/18 10:00 Dose: 2 mg Naloxone HCl (Narcan) 0.2 mg IV Q2MIN PRN; Protocol PRN Reason: Opiate Reversal Ondansetron HCl (Zofran) 4 mg IV NOW ONE Stop: 08/09/18 23:05 Last Admin: 08/09/18 23:08 Dose: 4 mg Ondansetron HCl (Zofran) 4 mg IV Q8HR PRN PRN Reason: Nausea And Vomiting Ondansetron HCl (Zofran Odt) 4 mg PO Q8HR PRN PRN Reason: Nausea And Vomiting Ondansetron HCl (Zofran) 4 mg IV NOW PRN PRN Reason: Nausea And Vomiting Consultations Consultation #1: Dr. Carmona (Ortho) happy to have on her service and will take to the OR tomorrow, but recommends admission to medical service. No traction needed. Consultation #2: Dr. Jeter happy to accept patient on behalf of Dr. Stockton. Vital Signs - 8 hr 08/10/18 15:38 08/10/18 20:15 08/10/18 20:16 Temperature 100.7 F H 98.5 F Pulse Rate 81 80 80 Respiratory Rate 18 19 13 Blood Pressure 149/73 H 70/34 L 75/36 L Pulse Oximetry 98 95 93 08/10/18 20:18 08/10/18 20:20 08/10/18 20:25 Temperature Pulse Rate 86 91 H 92 H Respiratory Rate 13 11 L 14 Blood Pressure 76/41 L 105/53 L 106/54 L Pulse Oximetry 93 92 93 08/10/18 20:30 08/10/18 20:40 08/10/18 20:55 Temperature 98.6 F 98.6 F 97.8 F Pulse Rate 97 H 99 H 102 H Respiratory Rate 16 17 12 Blood Pressure 114/55 L 127/60 109/59 L Pulse Oximetry 93 94 95 08/10/18 21:05 08/10/18 21:20 08/10/18 21:45 Temperature 97.8 F 97.7 F 98 F Pulse Rate 93 H 91 H 91 H Respiratory Rate 14 12 18 Blood Pressure 112/55 L 118/57 L 120/69 Pulse Oximetry 95 95 93 08/10/18 22:15 Temperature 98 F Pulse Rate 90 Respiratory Rate 18 Blood Pressure 116/71 Pulse Oximetry 93 - Fall Lab Data Result diagrams: 08/10/18 20:34 08/09/18 20:15 Lab Results 08/09/18 08/09/18 08/09/18 Range/Units 20:15 20:15 20:15 WBC 7.3 (4.5-11.0) X10^3/uL RBC 4.11 (4.0-5.2) X10^6/uL Hgb 13.3 (12.0-16.0) g/dL Hct 39.9 (36-46) % MCV 97.1 (80-100) fL MCH 32.4 (26-34) PG MCHC 33.4 (30-36) % RDW 13.4 (11.6-14.8) % Plt Count 240 (150-400) X10^3/uL Neut % (Auto) 40.6 L (50-75) % Lymph % (Auto) 46.6 H (25-40) % Pepin % (Auto) 9.7 (3-14) % Eos % (Auto) 2.5 (2-4) % Baso % (Auto) 0.6 (0-2) % Neut # (Auto) 3000 (6222-5653) /uL Lymph # (Auto) 3400 (1509-1606) /uL Pepin # (Auto) 700 (0-900) /uL Eos # (Auto) 200 (0-450) /uL Baso # (Auto) 0 (0-100) /uL Sodium 139 (137-145) mmol/L Potassium 3.8 (3.4-5.1) mmol/L Chloride 104 (98-107) mmol/L Carbon Dioxide 26 (22-32) mmol/L BUN 27 H (7-17) mg/dL Creatinine 0.60 (0.52-1.04) mg/dL Estimated GFR > 60.0 (>60) mL/min BUN/Creatinine Ratio 45.0 H (6-22) Glucose 115 H (80-110) mg/dL Calcium 9.3 (8.4-10.2) mg/dL Blood Type A Negative Antibody Screen Negative 08/10/18 Range/Units 20:34 WBC (4.5-11.0) X10^3/uL RBC (4.0-5.2) X10^6/uL Hgb 10.0 L (12.0-16.0) g/dL Hct 30.6 L (36-46) % MCV (80-100) fL MCH (26-34) PG MCHC (30-36) % RDW (11.6-14.8) % Plt Count (150-400) X10^3/uL Neut % (Auto) (50-75) % Lymph % (Auto) (25-40) % Pepin % (Auto) (3-14) % Eos % (Auto) (2-4) % Baso % (Auto) (0-2) % Neut # (Auto) (0368-4613) /uL Lymph # (Auto) (9005-1416) /uL Pepin # (Auto) (0-900) /uL Eos # (Auto) (0-450) /uL Baso # (Auto) (0-100) /uL Sodium (137-145) mmol/L Potassium (3.4-5.1) mmol/L Chloride (98-107) mmol/L Carbon Dioxide (22-32) mmol/L BUN (7-17) mg/dL Creatinine (0.52-1.04) mg/dL Estimated GFR (>60) mL/min BUN/Creatinine Ratio (6-22) Glucose (80-110) mg/dL Calcium (8.4-10.2) mg/dL Blood Type Antibody Screen Imaging Data Shoulder Xray: Radiologist's impression: [address] [address] XRay Report Signed Patient: Chen L[facility]#: [id number] : 6Acct:[id number] Age/Sex: 63 / FDate of Service: 08/09/18 Loc: ED Accession Number: [id number] Procedure: XR shoulder RT min 2V Ordering Provider: Jean Pierre Mcdonald D.O. PROCEDURE: XR SHOULDER RT MIN 2V INDICATIONS: fall TECHNIQUE: 2 views of the shoulder were acquired. COMPARISON: None. FINDINGS: Bones: No shoulder fractures or dislocations. Mildly displaced acute fractures of the posterior lateral right third and fourth ribs. No suspicious bony lesions. Visualized ribs appear intact. Soft tissues: No suspicious soft tissue calcifications. IMPRESSION: No shoulder fracture. 2 right rib fractures. Dictated by: Herb Rodriguez M.D. on 08/09/2018 at 21:21 Approved by: Herb Rodriguez M.D. on 08/09/2018 at 21:22 Pelvis Xray: Radiologist's impression: [address] [address] XRay Report Signed Patient: Chen Lora [facility]#: [id number] : [id number] Age/Sex: 63 / FDate of Service: 08/09/18 Loc: ED Accession Number: [id number] Procedure: XR pelvis 1-2V Ordering Provider: Jean Pierre Mcdonald D.O. PROCEDURE: XR PELVIS 1-2V INDICATIONS: fall, left femur fracture TECHNIQUE: 2 view(s) of the pelvis acquired. COMPARISON: None. FINDINGS: Bones: Left femoral shaft fracture with overriding and displacement. No acute pelvic fractures or dislocations. Subacute to chronic left pelvic fracture at the junction between the acetabulum and ischium.. Soft tissues: Visualized bowel gas pattern is normal. No suspicious soft tissue calcifications. IMPRESSION: Left femoral shaft fracture. Subacute left anterior pelvic fracture. No acute pelvic fractures or dislocations. Dictated by: Herb Rodriguez M.D. on 08/09/2018 at 21:16 Approved by: Herb Rodriguez M.D. on 08/09/2018 at 21:17 Femur Xray: Radiologist's impression: [address] [address] XRay Report Signed Patient: Chen Lora [facility]#: [id number] : [id number] Age/Sex: 63 / FDate of Service: 08/09/18 Loc: ED Accession Number: [id number] Procedure: XR femur LT min 2V Ordering Provider: Jean Pierre Mcdonald D.O. PROCEDURE: XR FEMUR LT MIN 2V INDICATIONS: fall TECHNIQUE: AP and lateral views of the femur were acquired. COMPARISON: None. FINDINGS: Bones: Mid shaft femoral fracture with displacement and overriding. Subacute left anterior pelvic fracture at the junction between the acetabulum and left ischium. Soft tissues: No suspicious soft tissue calcifications or masses. IMPRESSION: Acute mid shaft femoral fracture with displacement and overriding. Subacute left anterior pelvic fracture. Dictated by: Herb Rodriguez M.D. on 08/09/2018 at 21:20 Approved by: Herb Rodriguez M.D. on 08/09/2018 at 21:21 Discharge Plan Departure Patient Disposition: Admitted As Inpatient Clinical Impression: Closed left femoral fracture Qualifiers: Encounter type: initial encounter Femur location: shaft Fracture morphology: transverse Fracture alignment: displaced Qualified Code(s): S72.322A - Displaced transverse fracture of shaft of left femur, initial encounter for closed fracture Right rib fracture Qualifiers: Encounter type: initial encounter Rib fracture type: multiple ribs Fracture type: closed Qualified Code(s): S22.41XA - Multiple fractures of ribs, right side, initial encounter for closed fracture Discharge Date/Time: 08/10/18 00:30 Interventions: ED Discharge Assessment Last Done: 08/10/18 00:22 Admit Date/Time: 08/10/18 00:36 Admit Provider: Silke Jeter
[2018-08-11] VITALS (7 sets, daily range): BP systolic 94–112; BP diastolic 51–61; PULSE 69–86; RESP 16–18; TEMP 36.8–37.3; O2SAT 95–98
[2018-08-11] MEDS: CEFAZOLIN 2 GM/100 ML FROZ.PIGGY IV ×2 (01:51→09:33)
[2018-08-11] MEDS: OXYCODONE IR 5 MG TABLET PO ×5 (02:24→19:38)
[2018-08-11 06:23] LABS: Hematocrit 29.3 % (36-46); Mean Corpuscular Hemoglobin 33.1 PG (26-34); Mean Corpuscular Volume 97.5 fL (80-100); Platelet Count 144 X10^3/uL (150-400); Red Blood Cell Count 3.01 X10^6/uL (4.0-5.2); Red Cell Distribution Width 13.4 % (11.6-14.8); White Blood Cell Count 10.2 X10^3/uL (4.5-11.0)
--- NOTE | 2018-08-11 08:22 | PM.OP.1 ---
Operative Date/Time/Diagnoses Date of procedure: 08/11/18 Time of procedure: 08:23 Pre-op diagnosis: Left midshaft femur fracture likely associated with Fosamax usage Post-op diagnosis: same Procedure & Clinicians Procedure: Intramedullary rodding left femur Same procedure as scheduled: Yes Indications: This is a 63-year-old female who fell in her kitchen and noted the acute onset of left femur pain. She was brought to [facility] where x-rays showed a midshaft left femur fracture. She has been on Fosamax for 3 years. Surgeon: Kierra Carmona Carding Machine Operator: Irina Marr Anesthesia Type: General Operative Notes Findings: Anatomic reduction, fairly good femoral fixation in the mid diaphysis Closure Type: primary Specimen(s): none sent Prosthetic devices, grafts, tissues, transplants, or devices: Carmona and Nephew cephalomedullary nail size 10 by 38 Estimated Blood Loss (mL): 350 Blood products transfused: none Procedure in detail: Patient was brought to the operating room and underwent the induction of a general anesthesia. She was given antibiotics and transiemic acid. A time-out was performed. She was carefully positioned on the fracture table. Her fracture was then reduced with combination of traction and using the table. A C-arm confirmed acceptable overall positioning and it looked like we could likely get anatomic reduction. She was prepped and draped in a standard sterile fashion. A lateral skin incision by the hip was made dissection was carried out through skin and subcutaneous tissues. A Gelpi retractor was placed. Dissection was carried out through skin and subcutaneous tissues. The fascia was incised. The trochanteric region was carefully palpated a pin was placed in the proximal femur. The proximal Reamer was then passed down into the intramedullary canal region. A guidewire was then placed into the proximal femur it was pre bent in order to allow passage across the fracture site. I then placed the reduction tool into the femur. The fracture was carefully reduced but the canal was too tight to adequately position the reduction tool distal enough to control the fragment and adequately reduce the fracture. The proximal femoral region was reamed up to an 11 5 in order to allow ultimate passage of the nail but also placing the reduction tool near the fracture site to optimally control the proximal fragment. Unfortunately we lost traction at that point as the foot slipped in the boot and we had to reposition the boot. The boot was repositioned and the fracture was re-reduced with traction. Using the reduction tool traction intermittent use of a crutch and compression across the fracture site a good reduction was achieved. A guide wire was then passed distally and the distal canal was reamed. The nail was carefully passed distally and the reduction was carefully confirmed. There was excellent toter both in the distal fragment and in the proximal fragment. The proximal screw was placed. I did impact the nail specifically prior to placing the proximal screw. The wound was meticulously irrigated with normal saline the hip wound was closed with interrupted Vicryl and skin maxim. Exparel and Marcaine were injected. The hip wound was closed well the distal interlocking was performed. C-arm was brought in and 2 distal interlocking screws were placed after making as the lateral skin incision dissecting down through skin and subcutaneous tissues incising the fascia and then dissecting down to the femur and placing 2 distal interlocking screws using C-arm. The wound was closed with interrupted Vicryl and skin maxim. Wound was dressed sterilely. Patient tolerated the procedure well and was transferred recovery room in satisfactory condition. Complications: none Condition: stable Disposition: Acute Care Plan for aftercare: Weightbearing as tolerated left lower extremity. Discharge to home when safe.
--- NOTE | 2018-08-11 08:30 | P.OP_ITS ---
Operative Date/Time/Diagnoses Date of procedure: 08/11/18 Time of procedure: 08:23 Pre-op diagnosis: Left midshaft femur fracture likely associated with Fosamax usage Post-op diagnosis: same Procedure & Clinicians Procedure: Intramedullary rodding left femur Same procedure as scheduled: Yes Indications: This is a 63-year-old female who fell in her kitchen and noted the acute onset of left femur pain. She was brought to [facility] where x- rays showed a midshaft left femur fracture. She has been on Fosamax for 3 years. Surgeon: Kierra Carmona Director Engineering: Irina Marr Anesthesia Type: General Operative Notes Findings: Anatomic reduction, fairly good femoral fixation in the mid diaphysis Closure Type: primary Specimen(s): none sent Prosthetic devices, grafts, tissues, transplants, or devices: Carmona and Nephew cephalomedullary nail size 10 by 38 Estimated Blood Loss (mL): 350 Blood products transfused: none Procedure in detail: Patient was brought to the operating room and underwent the induction of a general anesthesia. She was given antibiotics and transiemic acid. A time-out was performed. She was carefully positioned on the fracture table. Her fracture was then reduced with combination of traction and using the table. A C-arm confirmed acceptable overall positioning and it looked like we could likely get anatomic reduction. She was prepped and draped in a standard sterile fashion. A lateral skin incision by the hip was made dissection was carried out through skin and subcutaneous tissues. A Gelpi retractor was placed. Dissection was carried out through skin and subcutaneous tissues. The fascia was incised. The trochanteric region was carefully palpated a pin was placed in the proximal femur. The proximal Reamer was then passed down into the intramedullary canal region. A guidewire was then placed into the proximal femur it was pre bent in order to allow passage across the fracture site. I then placed the reduction tool into the femur. The fracture was carefully reduced but the canal was too tight to adequately position the reduction tool distal enough to control the fragment and adequately reduce the fracture. The proximal femoral region was reamed up to an 11 5 in order to allow ultimate passage of the nail but also placing the reduction tool near the fracture site to optimally control the proximal fragment. Unfortunately we lost traction at that point as the foot slipped in the boot and we had to reposition the boot. The boot was repositioned and the fracture was re-reduced with traction. Using the reduction tool traction intermittent use of a crutch and compression across the fracture site a good reduction was achieved. A guide wire was then passed distally and the distal canal was reamed. The nail was carefully passed dis tally and the reduction was carefully confirmed. There was excellent occupational therapy aide both in the distal fragment and in the proximal fragment. The proximal screw was placed. I did impact the nail specifically prior to placing the proximal screw. The wound was meticulously irrigated with normal saline the hip wound was closed with interrupted Vicryl and skin maxim. Exparel and Marcaine were injected. The hip wound was closed well the distal interlocking was performed. C-arm was brought in and 2 distal interlocking screws were placed after making as the lateral skin incision dissecting down through skin and subcutaneous tissues incising the fascia and then dissecting down to the femur and placing 2 distal interlocking screws using C-arm. The wound was closed with interrupted Vicryl and skin maxim. Wound was dressed sterilely. Patient tolerated the procedure well and was transferred recovery room in satisfactory condition. Complications: none Condition: stable Disposition: Acute Care Plan for aftercare: Weightbearing as tolerated left lower extremity. Discharge to home when safe.
[2018-08-11] MEDS: ACETAMINOPHEN 325 MG TABLET 975 MG PO ×3 (09:27→22:18)
[2018-08-11] MEDS: ASPIRIN EC 81 MG TABLET PO ×2 (09:28→22:19)
[2018-08-11] MEDS: DOCUSATE 100 MG CAPSULE PO ×2 (09:28→22:19)
[2018-08-11] MEDS: POLYETHYLENE GLYCOL 3350 17 GM POWD.PACK PO (09:29)
--- NOTE | 2018-08-11 11:05 | CM.DPC ---
DCP: continued: case discussed in Team Rounds. PT will see pt today, OT order is obtained. Pt had surgery as planned late yesterday: intramadullary rodding L femur and with WBAT. Will be following for d/c dispo options as more is known after her therapy sessions.
--- NOTE | 2018-08-11 11:28 | PT.IIE ---
Current Diagnoses Nondisplaced comminuted fracture of shaft of left femur, initial encounter for closed fracture (08/10/18) Surgery Performed Operation Date: 08/10/18 20:45 Actual Procedures p Intramedullary Nailing Femur(Left) - Kierra Carmona MD Surgical History (Last Reviewed 08/10/18 @ 23:26 by Jean Pierre Mcdonald DO) H/O knee surgery (Acute) H/O oral surgery (Acute) H/O sinus surgery (Acute) Medical History (Last Reviewed 08/10/18 @ 23:26 by Jean Pierre Mcdonald DO) Degenerative joint disease (Acute) History of basal cell carcinoma (Acute) Migraine syndrome (Acute) Osteopenia (Acute) Raynaud's syndrome (Acute) Physical Therapy Inpatient Evaluation/Re-Eval M1 PT/OT-IP Prior Functional Status Start: 08/11/18 10:46 Freq: NEEDED Status: Active Protocol: Document 08/11/18 10:47 [facility] (Rec: 08/11/18 11:28 [facility] [id number]) Medical Review Prior Functional Status Medical History Reviewed Yes Diet/Fluid Consistency Regular Communication communication with nursing prior treatment for pain management Mobility and Gait The patient was ambulating independently prior to this fall Activities of Daily Living and IADL's full function Prior Functional Level (Other details) full function doing lai for exercise Social History Household Members spouse Living Arrangements House Number of Floors (Floors) Two Floors Number of Stairs To Enter/Railing? 2 stairs without railing to get into the house and a flight of stairs from the main floor to her bedroom Home Environment Standard Height Toilet Employment Status Retired Additional Social History Comment Patient's Lalo will purchase a FWW for home M2 PT-IP Current Condition Start: 08/11/18 10:46 Freq: NEEDED Status: Active Protocol: Document 08/11/18 10:47 [facility] (Rec: 08/11/18 11:28 [facility] [id number]) Physical Therapy Current Condition Current Condition Evaluation Date 08/11/18 Treatment Diagnosis Closed left femoral fx and right rib fx, s/p intramedullary rodding L femur Onset Date 08/10/18 Precautions Other Precautions WBAT left LE, discharge home when safe Weight Bearing Status Weight Bearing Status Weight Bear as Tolerated M3 PT-IP Subjective Start: 08/11/18 10:46 Freq: NEEDED Status: Active Protocol: Document 08/11/18 10:47 [facility] (Rec: 08/11/18 11:28 [facility] [id number]) Subjective Physical Therapy Visit Type Type Initial Evaluation Visit Start Time 10:00 Visit Stop Time 10:45 Total Visit Minutes 45 Notes pt seen for day 1 post op intramedullary rodding left femur. The patient is a 63 year old female who fell in her kitchen landing on her right side. She noted acute onset of left femur pain and right shoulder pain. The x rays are negative for right shoulder fx but due show rib fracture on the right Physical Therapy Visit Comments Patient Comments pt rates pain as 6/10 prior to her pain meds. She was seen approximatly 30 minutes following her pain meds given to her and pain was reduced to 1/10. Patient Goals Goals include being able to return to [facility] Pain Assessment Pain When Pain Assessed During Mobility Pain Present Pain Present Pain Reported Location Right Shoulder Intensity 1 Scale Used Numeric (1 - 10) Description Aching With Movement Pain Management Techniques Apply Cold Timing of Activity with Medications Left Thigh Intensity 1 Description Aching With Movement Pain Management Techniques Re-positioning Timing of Activity with Medications M4 PT-IP Mobility and Gait Start: 08/11/18 10:46 Freq: NEEDED Status: Active Protocol: Document 08/11/18 10:47 [facility] (Rec: 08/11/18 11:28 [facility] [id number]) PT-Bed Mobility Assessment Rolling Type of Rolling Roll to Left Level of Assist Maximal Assistance 1 Person Assistance Supine to Sit Supine to Sit Maximum Assistance 1 Person Assistance Sit to Supine Sit to Supine Moderate Assistance Scooting Scooting to Edge of Bed Moderate Assistance Scooting Up and Down in Bed Maximum Assistance PT-Transfer Assessment Sit to and From Stand Sit to and from Stand Moderate Assistance Equipment Transfer Assistive Device Gait Belt Front Wheeled Walker Orthotic/Prosthetic Devices or Brace: No Comments Mobility Comments Chen stood at the edge of the bed for weight shifts. She felt very light headed and did not want to ambulate away from the bed at this time. She performed sit-stand 2 times and stood for a total of 5 minutes with fww at the edge of the bed Gait Assessment Assistive Devices Assistive Device Front Wheeled Walker Orthotic/Prosthetic Devices or Brace: No Factors Limiting Gait Function Factors Limiting Gait Function Pain PT-Balance Assessment Sitting Balance and Reactions Static Sitting Balance Ability Normal Dynamic Sitting Balance Ability Normal Standing Balance and Reactions Static Standing Balance Ability Fair M5 PT-IP Objective Assessments Start: 08/11/18 10:46 Freq: NEEDED Status: Active Protocol: Document 08/11/18 10:47 [facility] (Rec: 08/11/18 11:28 [facility] [id number]) Orientation Orientation/Cognition Level of Alertness Alert Orientation Name Age Birthday Month Date Year Day of Week Place Situation Language Function Ability No Deficits Noted Safety Awareness Understands Safety Issues Memory Description No Deficits Noted Gross Range of Motion Upper Extremity ROM Assessment Right Impaired Impairments pain with reaching overhead right arm Lower Extremity ROM Assessment Bilaterally Impaired Impairments left knee flexion to 40 degrees AROM Right knee flexion to 90 deg to help with scooting in bed but some pain with right knee ROM as well Strength Upper Extremity Strength Assessment Right Impaired Shoulder pain with resistance throught the right UE due to fall on right shoulder Lower Extremity Strength Assessment Bilaterally Impaired Comments Strength Comments strength not formally tested due to s/p surgery, pt needed assist to help move the left LE in bed Right LE weakness 4/5 MMT generally for R LE Coordination Assessment Gross Coordination Gross Coordination WNL Sensation Assessment Sensation Gross Sensation WNL Muscle Tone Muscle Tone WNL Yes M6 PT-IP Treatment Start: 08/11/18 10:46 Freq: NEEDED Status: Active Protocol: Document 08/11/18 10:47 [facility] (Rec: 08/11/18 11:28 [facility] [id number]) Physical Therapy Treatment Exercises Exercises Ankle Pumps Quad Sets Heel Slides Knee ROM Measurement knee flex 40 deg left, 90 deg R Education Education Provided Precautions Weight Bearing Status Safety Equipment Issued Equipment Type and Company FWW Other Treatments Other Treatment Performed transfer training and bed mobility, weightbearing as tolerated standing at the edge of the bed with FWW M7 PT-IP Assessment and Plan Start: 08/11/18 10:46 Freq: NEEDED Status: Active Protocol: Document 08/11/18 10:47 [facility] (Rec: 08/11/18 11:28 [facility] [id number]) PT Summary Assessment and Plan Potential Rehabilitation Potential Good Status of Condition at Evaluation Stable Summary Impairments Pain ROM Strength Bed Mobility Transfers Gait Activity Tolerance Assessment Summary Chen is a 63 year old female s /o left femur fracture with a fall and intramedullary rodding left femur. She also landed on her right shoulder and is c/o pain here. She was medicated 30 minutes prior to PT evaluation today. Pain was 1/10 at the beginning of PT. She was able to perform ankle pumps and modified quad set. Knee ROM limited to 40 deg left and actually her right side is limited too with pain around 90 deg. She does have a hx of 2 knee surgeries in 1978 and 1999. She was able to use a little pressure through a bent right knee to help scoot in bed but this was limited and the transfer from supine -sitting at the edge of the bed was max assist. She sat at the edge of bed for a minute or so prior to standing as she became very light headed. She was able to perform sit-stand x 2 and weight shifted in standing. Due to her being very light headed gait away from the bed was not yet initiated. She was transfered back to bed with max A and max A x 2 to scoot her up in bed. She is a good candidate for PT and OT and may require a rehab stay due to max assist with transfers. Goals Bed Mobility Goal Minimal Assistance Transfer Goal Minimal Assistance Gait Goal Contact Guard Assistance Gait Distance 25 feet Other Goals Chen is able to climb up 2 stairs prior to DC home as she has 2 stairs without rails into her house. Days to Meet Goals 2 Frequency of Treatment Frequency Of Treatment Twice a Day Treatment Plan Physical Therapy Treatment Plan Bed Mobility Training Transfer Training Gait Training Therapeutic Exercise Balance Retraining Other Recommendations and Next Treatment stair training Focus Recommendations To Nursing Amount of Assist Needed 2 Person Assist Discharge Recommendations PT Discharge Recommendations Home with Assistance SNF Rehab Other Discharge Recommendations the patient may require SNF rehab due to limited mobility at this time. Will further assess this prior to DC Equipment Needed for Home Before FWW Discharge
--- NOTE | 2018-08-11 12:17 | PC.NURSE ---
Pt medicated with Percolone 5mg and effective for pain control. Pt was able to stand at bedside and layed back down as she felt light headed. Dressing intact with some bloody drainage under transparent dressing. This is contained and not leaking out of dressing. CMS wnl and ppx2. Visiting with earlier and he left. Pt tolerating lunch and is due to have pain medication around 1230.
[2018-08-11] MEDS: CELECOXIB 200 MG CAPSULE PO ×2 (13:42→22:19)
--- NOTE | 2018-08-11 15:16 | PT.IPTN ---
Current Diagnoses Nondisplaced comminuted fracture of shaft of left femur, initial encounter for closed fracture (08/10/18) Surgery Performed Operation Date: 08/10/18 20:45 Actual Procedures p Intramedullary Nailing Femur(Left) - Kierra Carmona MD Physical Therapy Treatment Note M2 PT-IP Current Condition Start: 08/11/18 10:46 Freq: NEEDED Status: Active Protocol: Document 08/11/18 10:47 [facility] (Rec: 08/11/18 11:28 [facility] [id number]) Physical Therapy Current Condition Current Condition Evaluation Date 08/11/18 Treatment Diagnosis Closed left femoral fx and right rib fx, s/p intramedullary rodding L femur Onset Date 08/10/18 Precautions Other Precautions WBAT left LE, discharge home when safe Weight Bearing Status Weight Bearing Status Weight Bear as Tolerated M3 PT-IP Subjective Start: 08/11/18 10:46 Freq: NEEDED Status: Active Protocol: Document 08/11/18 15:09 [facility] (Rec: 08/11/18 15:16 [facility] [id number]) Subjective Physical Therapy Visit Type Type Treatment Note Visit Start Time 14:25 Visit Stop Time 14:40 Total Visit Minutes 15 Notes Pt was co treated with OT this afternoon and PT assisted with the gait training portion of treatment Physical Therapy Visit Comments Patient Comments Pt reports she is a 4/10 pain level for her left LE. She is seated at the edge of the bed when I started co treating with OT Therapy Pain Assessment Pain When Pain Assessed During Mobility M4 PT-IP Mobility and Gait Start: 08/11/18 10:46 Freq: NEEDED Status: Active Protocol: Document 08/11/18 10:47 [facility] (Rec: 08/11/18 11:28 [facility] [id number]) PT-Bed Mobility Assessment Rolling Type of Rolling Roll to Left Level of Assist Maximal Assistance 1 Person Assistance Supine to Sit Supine to Sit Maximum Assistance 1 Person Assistance Sit to Supine Sit to Supine Moderate Assistance Scooting Scooting to Edge of Bed Moderate Assistance Scooting Up and Down in Bed Maximum Assistance PT-Transfer Assessment Sit to and From Stand Sit to and from Stand Moderate Assistance Equipment Transfer Assistive Device Gait Belt Front Wheeled Walker Orthotic/Prosthetic Devices or Brace: No Comments Mobility Comments Chen stood at the edge of the bed for weight shifts. She felt very light headed and did not want to ambulate away from the bed at this time. She performed sit-stand 2 times and stood for a total of 5 minutes with fww at the edge of the bed Gait Assessment Assistive Devices Assistive Device Front Wheeled Walker Orthotic/Prosthetic Devices or Brace: No Factors Limiting Gait Function Factors Limiting Gait Function Pain PT-Balance Assessment Sitting Balance and Reactions Static Sitting Balance Ability Normal Dynamic Sitting Balance Ability Normal Standing Balance and Reactions Static Standing Balance Ability Fair M5 PT-IP Objective Assessments Start: 08/11/18 10:46 Freq: NEEDED Status: Active Protocol: Document 08/11/18 10:47 [facility] (Rec: 08/11/18 11:28 [facility] [id number]) Orientation Orientation/Cognition Level of Alertness Alert Orientation Name Age Birthday Month Date Year Day of Week Place Situation Language Function Ability No Deficits Noted Safety Awareness Understands Safety Issues Memory Description No Deficits Noted Gross Range of Motion Upper Extremity ROM Assessment Right Impaired Impairments pain with reaching overhead right arm Lower Extremity ROM Assessment Bilaterally Impaired Impairments left knee flexion to 40 degrees AROM Right knee flexion to 90 deg to help with scooting in bed but some pain with right knee ROM as well Strength Upper Extremity Strength Assessment Right Impaired Shoulder pain with resistance throught the right UE due to fall on right shoulder Lower Extremity Strength Assessment Bilaterally Impaired Comments Strength Comments strength not formally tested due to s/p surgery, pt needed assist to help move the left LE in bed Right LE weakness 4/5 MMT generally for R LE Coordination Assessment Gross Coordination Gross Coordination WNL Sensation Assessment Sensation Gross Sensation WNL Muscle Tone Muscle Tone WNL Yes M6 PT-IP Treatment Start: 08/11/18 10:46 Freq: NEEDED Status: Active Protocol: Document 08/11/18 15:09 [facility] (Rec: 08/11/18 15:16 [facility] [id number]) Physical Therapy Treatment Other Treatments Other Treatment Performed Gait training with FWW, co treat with OT; pt ambulated in room to bedside chair approx 15 feet with fww and CGA. She demonstrated good weightbearing through the left LE M7 PT-IP Assessment and Plan Start: 08/11/18 10:46 Freq: NEEDED Status: Active Protocol: Document 08/11/18 15:09 [facility] (Rec: 08/11/18 15:16 [facility] [id number]) PT Summary Assessment and Plan Potential Rehabilitation Potential Good Status of Condition at Evaluation Stable Summary Impairments Pain ROM Strength Bed Mobility Transfers Gait Activity Tolerance Assessment Summary Chen is a 63 year old female s /o left femur fracture with a fall and intramedullary rodding left femur. She is being seen for the second visit today and this visit is a co treat with OT. She is not complaining of dizzyness this afternoon and did well with ambulation to the bedside chair. She is wanting to go home with her at discharge Frequency of Treatment Frequency Of Treatment Twice a Day Treatment Plan Physical Therapy Treatment Plan Bed Mobility Training Transfer Training Gait Training Therapeutic Exercise Balance Retraining Other Recommendations and Next Treatment stair training Focus Recommendations To Nursing Amount of Assist Needed 2 Person Assist Discharge Recommendations PT Discharge Recommendations Home with Assistance Equipment Needed for Home Before FWW Discharge
--- NOTE | 2018-08-11 15:40 | P.PN_ITS ---
Subjective Date Patient Seen: 08/11/18 Time Patient Seen: 15:35 Interval history: Patient is resting comfortably in hospital bed. She feels her pain is well controlled. She had surgery yesterday morning and gabe was placed for displaced femur fracture. She states that her shoulder, right sided is what hurts the most. She states that Dr. Carmona is ordering an x-ray for the morning. Otherwise she is tolerating p.o. without difficulty but just has not been very hungry. She is not nauseous and no vomiting. She has not had a bowel movement since admission. She is passing gas. She has a Bronson in place. Reviewed past medical history, medications and allergies is this is a new patie nt to me. Twelve point review of systems is negative other than above. No chest pain no shortness of breath no lower extremity edema No nausea or vomiting Exam Vital Signs (past 8 hours): - 08/11/18 08:19 08/11/18 10:53 08/11/18 11:43 Temperature 99.1 F 98.3 F Pulse Rate 79 76 69 Respiratory Rate 16 16 16 Blood Pressure 106/58 L 111/59 L Pulse Oximetry 96 97 95 Fraction of Inspired Oxygen 21 Oxygen Delivery Method Room Air Oxygen Flow Rate 0 Narrative Exam Narrative: Afebrile vital signs are stable. Alert and oriented x3 HEENT is unremarkable: Mucous membranes moist and pink Neck: Supple without adenopathy, jugular venous distention or bruits, no thyromegaly Chest: Clear to auscultation without wheezes rhonchi or crackles Cor: Regular rate and rhythm without any murmur Abdomen: Positive bowel sounds, soft, nontender Right anterior upper ribs and lateral with tenderness. Lower extremities without edema and pulses intact Tenderness to palpation over the right shoulder Bilateral upper extremities and lower extremities neurovascularly intact. Objective Labs Result Diagrams: 08/11/18 06:05 08/09/18 20:15 Labs: Laboratory Results - last 24 hr 08/10/18 08/11/18 20:34 06:05 WBC 10.2 RBC 3.01 L Hgb 10.0 L 10.0 L Hct 30.6 L 29.3 L MCV 97.5 MCH 33.1 MCHC 34.0 RDW 13.4 Plt Count 144 L Assessment & Plan Assessment & Plan narrative: 63-year-old female with left femur fracture status post fall.\ Assessment 1. Femur fracture status post surgical repair Plan continue per Orthopedics. Continue with physical therapy per their instructions. Continue with current pain management. Assessment 2. Right shoulder pain, status post fall Plan: X-ray tomorrow Assessment 3. Osteoporosis on Fosamax and patient states that Dr. Carmona so she wants her to stop this. Anticipate possible discharge tomorrow
--- NOTE | 2018-08-11 16:16 | OT.IP.EVAL ---
Current Diagnoses Nondisplaced comminuted fracture of shaft of left femur, initial encounter for closed fracture (08/10/18) Surgery Performed Operation Date: 08/10/18 20:45 Actual Procedures p Intramedullary Nailing Femur(Left) - Kierra Carmona MD Past Medical History (Last Reviewed 08/10/18 @ 23:26 by Jean Pierre Mcdonald DO) Degenerative joint disease (Acute) History of basal cell carcinoma (Acute) Migraine syndrome (Acute) Osteopenia (Acute) Raynaud's syndrome (Acute) Surgical History (Last Reviewed 08/10/18 @ 23:26 by Jean Pierre Mcdonald DO) H/O knee surgery (Acute) H/O oral surgery (Acute) H/O sinus surgery (Acute) Occupational Therapy Inpatient Evaluation/Re-Eval M1 PT/OT-IP Prior Functional Status Start: 08/11/18 10:46 Freq: NEEDED Status: Active Protocol: Document 08/11/18 16:01 CGR (Rec: 08/11/18 16:16 CGR [id number]) Medical Review Prior Functional Status Medical History Reviewed Yes Diet/Fluid Consistency Regular Communication communication with nursing prior treatment for pain management Mobility and Gait The patient was ambulating independently prior to this fall Activities of Daily Living and IADL's full function Prior Functional Level (Other details) full function doing lai for exercise Social History Household Members spouse Living Arrangements House Number of Floors (Floors) Two Floors Number of Stairs To Enter/Railing? 2 stairs without railing to get into the house and a flight of stairs from the main floor to her bedroom Home Environment Standard Height Toilet Walk in Shower Home Equipment Front Wheel Walker Lift Manager Employment Status Adjunct Business Instructor Employed Additional Social History Comment Patient's Lalo will purchase a FWW for home. 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 M2 OT-IP Current Condition Start: 08/11/18 16:01 Freq: Status: Active Protocol: Document 08/11/18 16:01 CGR (Rec: 08/11/18 16:16 CGR [email or web address]) Occupational Therapy Current Condition Current Condition Evaluation Date 08/11/18 Treatment Diagnosis GLF with L hip fx and R rib fx Diagnosis Onset Date 08/10/18 Weight Bearing Status Weight Bearing Status Full Weight Bearing M3 OT- IP Subjective and Pain Start: 08/11/18 16:01 Freq: Status: Active Protocol: Document 08/11/18 16:01 CGR (Rec: 08/11/18 16:16 CGR [email or web address]) OT- Subjective Occupational Therapy Visit Type Type Initial Evaluation Visit Start Time 14:15 Visit Stop Time 14:55 Total Visit Minutes 40 Occupational Therapy Visit Comments Patient Comments I was dizzy when I got up the first time. OT Pain Assessment Pain When Pain Assessed At Rest Pain Present Pain Present Pain Reported Location Right Shoulder Intensity 5 Scale Used Numeric (1 - 10) Management Techniques Re-positioning Timing of Activity with Medications Left Thigh Intensity 3 Scale Used Numeric (1 - 10) Management Techniques Re-positioning Timing of Activity with Medications M4 OT- IP ADL's Start: 08/11/18 16:01 Freq: Status: Active Protocol: Document 08/11/18 16:01 CGR (Rec: 08/11/18 16:16 CGR [email or web address]) OT [id number] Comments OT Self-Feeding Comments Not meal time OT ADL-Grooming General Evaluation Grooming Ability Standby Assistance Areas Needing Assistance Retrieving/Set-up of Grooming Items Combing/Brushing Hair Face Washing Comments OT Grooming Comments seated in chair OT ADL-Oral Care Comments Oral Care Comments Pt declined. OT ADL-Dressing General Eval Lower Body Dressing Ability Total Assistance Areas Needing Assistance Socks OT ADL-Toileting Comments OT Toileting Comments Pt with nair and declined toileting need. M5 OT- IP IADL's Start: 08/11/18 16:01 Freq: Status: Active Protocol: Document 08/11/18 16:01 CGR (Rec: 08/11/18 16:16 CGR [email or web address]) OT-Instrumental Activities of Daily Living Deficits IADL Deficits Identified Deficits Home Safety Awareness Awareness of Need for Assistance at Home Good Awareness Ability to Problem Solve Emergency Able to Problem Solve Situations Medication Management Medication Management No Deficits Identified Money Management Money Management No Deficits Identified Meal Preparation Meal Preparation Caregiver Provides Assist Supervisor Doping Supervisor Doping Caregiver Provides Assist Driving Driving Comments Pt not to drive till oked by . M6 OT- IP Functional Cognition Start: 08/11/18 16:01 Freq: Status: Active Protocol: Document 08/11/18 16:01 CGR (Rec: 08/11/18 16:16 CGR [email or web address]) Cognitive Factors Limiting Selfcare Function Cognitive Ability Level of Alertness Alert Patient Orientation Name Age Birthday Month Date Year Day of Week Place Situation Attention Span Ability Capable of Focused Attention Capable of Sustained Attention Ability to Follow Commands Able to Follow Multi-Step Commands Memory Description No Deficits Noted Safety Awareness No Deficits Noted Problem Solving Ability No deficits Noted Executive Function Ability No Deficits Noted Abstract Thinking Ability No Deficits Noted OT- Vision and Hearing OT- Hearing Assessment OT- Hearing Assessment WFL OT- Vision Assessment Visual Acuity Glasses All The Time Visual Attentiveness WFL Occular Pursuits WFL Visual Convergence WFL Visual Thomas WFL M7 OT- IP Mobility and Balance Start: 08/11/18 16:01 Freq: Status: Active Protocol: Document 08/11/18 16:01 CGR (Rec: 08/11/18 16:16 CGR [email or web address]) OT- Bed Mobility Assessment Supine to Sit Supine to Sit Assist Maximum Assistance Head of Bed Elevated Bedrails Scooting Scooting to Edge of Bed Maximum Assistance Head of Bed Elevated Bedrails OT-Transfer Assessment Sit to and From Stand Sit to and from Stand Contact Guard Assistance Transfers Transfer Ability Contact Guard Assistance Technique Transfer Destination Bed Chair Transfer Technique Stand Step Pivot Devices Transfer Assistive Devices Gait Belt Front Wheeled Walker Comments Mobility Comments Pt did well with mobility once out of the bed. Her shoulder injury is limiting her ability to pull herself up in bed. OT- Gait Assessment Gait Gait Assistance Required: Contact Guard Assist Able to Maintain Weight Bearing Status Yes During Gait Assistive Devices Assistive Device Gait Belt Front Wheeled Walker OT- Balance Assessment Sitting Balance and Reactions Static Sitting Balance Ability Normal Dynamic Sitting Balance Ability Normal M8 OT- IP Objective Assessments Start: 08/11/18 16:01 Freq: Status: Active Protocol: Document 08/11/18 16:01 CGR (Rec: 08/11/18 16:16 CGR [email or web address]) OT Gross Range of Motion Upper Extremity Range of Motion Assessment Within Functional Limits ROM Impairments But with pain noted to the R shoulder. OT Strength Upper Extremity Strength Assessment Within Functional Limits Comments Strength Comments R shld not tested but grossly 4/5. Noted significant brusing to the R hand. OT- Coordination Assessment Upper Extremity Finger to Nose Test Within Functional Limits Finger Tapping Test Within Functional Limits OT-Muscle Tone Assessment Muscle Tone WNL Yes OT Sensation Assessment Comments Summary Comments No deficits Edema Edema Absent M9 OT- IP Assessment and Plan Start: 08/11/18 16:01 Freq: Status: Active Protocol: Document 08/11/18 16:01 CGR (Rec: 08/11/18 16:16 CGR [email or web address]) OT Summary Assessment and Plan Potential Rehabilitation Potential Excellent Analytic Complexity at Evaluation Low Summary OT Impairments Pain Strength Balance Functional Mobility Self-Feeding Grooming Dressing Toileting Bathing Toilet Transfers Shower Transfers Progress Towards Goals Progressing Toward Goals Assessment Summary Pt presents as a low complexity eval s/p fall and L hip fx, R rib fx and R shld pain. Pt will likely progress well to a safe discharge home with family support. Goals Grooming Goal Independent Dressing Goal Independent Dressing Stick Lift Manager Sock Aid Toileting Goal Independent Bathing Goal Independent Toilet Transfer Goal Independent Shower Transfer Goal Independent Days to Meet Goals 3 Frequency of Treatment Frequency Of Treatment Once a Day Treatment Plan OT Treatment Plan ADL Training Functional Mobility Patient/Family Education Discharge Planning Other Treatment Recommendations and Next LB dressing with Hip kit and Treatment Focus shower. Discharge Recommendations OT Discharge Recommendations Home with Assistance Home Equipment Needs to get shower chair, hand held shower, and 2ww.
[2018-08-11] MEDS: MAGNESIUM HYDROXIDE 30 ML UDC PO (22:21)
[2018-08-12] VITALS (8 sets, daily range): BP systolic 89–129; BP diastolic 50–67; PULSE 70–99; RESP 14–20; TEMP 36.3–36.9; O2SAT 92–100
--- NOTE | 2018-08-12 01:47 | PC.NURSE ---
Addendum entered by Marii Choudhary R.N. 08/12/18 06:19: Assisted to bathroom with walker and 1 assist. Needs much help to move left leg and get up out of bed, but once on her feet does well with walking. Had small BM and voided small amount urine but missed measuring hat so unknown amount. Now up in chair; chair alarm on. Addendum entered by Marii Choudhary R.N. 08/12/18 05:45: Bronson removed this morning and patient tolerated well. Informed of sx/prevention of UTI; verbalizes understanding. States pain in left hip is 5/10 now so medicated with Oxycodone and ice pack applied. Original Note: Patient is alert and oriented. Breath sounds CTA with RA sat of 99%. HRR. Denies nausea. BT present and is passing flatus. Indwelling catheter patent; plan is to remove later this morning. Aquacel dressing to left hip intact but has sanguineous drainage leaking out into Opsite dressing from lower end so dressing changed; incision well approximated with no redness or gaping areas and no leakage noted from incision. Also has gauze dressings, 1 below Aquacel and 1 distal to knee, both are CDI. Denies left hip pain but is having 1/10 pain in right shoulder; states MD is aware and may be getting xray later today. Declines offer of ice or pain medication. CMS is intact. Wearing bilateral SCD's. Needs assist to reposition in bed. Fall risk score is high and bed alarm is activated.
[2018-08-12] MEDS: OXYCODONE IR 5 MG TABLET PO ×2 (05:39→19:29)
--- NOTE | 2018-08-12 08:39 | DI.MRI.S_ITS ---
PROCEDURE: MR SHOULDER RT WO CON INDICATIONS: Right shoulder pain, rule out joint fracture or rotator cuff TECHNIQUE: Noncontrast oblique coronal T2 fast spin echo with fat saturation, oblique sagittal T1 spin echo and T2 fast spin echo with fat saturation, axial T1 spin echo and T2 fast spin echo with fat saturation through the shoulder. COMPARISON: None. FINDINGS: Image quality: Excellent. Rotator cuff: There is a full-thickness rupture of the distal supraspinatus and infraspinatus at their insertion on greater tuberosity with 3.5 cm medial retraction of torn tendon fibers to the level of glenoid. Tendinosis and low to moderate grade partial-thickness involving superior to mid fibers of the subscapularis is seen. Sagittal images demonstrate moderate to severe supraspinatus muscle atrophy and mild infraspinatus muscle atrophy. Bones and bursae: Superior migration of humeral head in relation to the glenoid is seen. Moderate acromioclavicular joint and glenohumeral joint osteoarthritis is noted. No fracture or dislocation. Small to moderate amount of joint fluid in subacromial subdeltoid bursal fluid is seen, no gross intra-articular loose body. Capsule and soft tissues: In the absence of intra-articular contrast, there is suggestion of superior labral tear extending from 11 to 1:00 position. The glenohumeral ligaments appear intact. Tendinosis and low-grade partial-thickness involving proximal intra-articular portion of long head biceps tendon is seen. The rotator interval appears normal, without fibrosis. The coracohumeral ligament is normal in thickness. IMPRESSION: 1. Full-thickness rupture of the distal supraspinatus and infraspinatus at their distal insertion of humeral head with medial retraction of torn tendon fibers to the level of the glenoid. Tendinosis and low to moderate grade partial-thickness tear involving superior to mid fibers of the subscapularis. Moderate to severe supraspinatus muscle atrophy and mild infraspinatus muscle atrophy. 2. Superior migration of humeral head in relation to the glenoid. Moderate acromioclavicular joint and glenohumeral joint osteoarthritis. Small to moderate amount of joint effusion a subacromial subdeltoid bursal fluid. 3. Suggestion of superior labral tear from 11 to 1:00 position. Tendinosis involving proximal intra-articular portion of long head biceps tendon. Dictated by: Drew Patel M.D. on 08/12/2018 at 9:48 Approved by: Drew Patel M.D. on 08/12/2018 at 9:54
--- NOTE | 2018-08-12 08:47 | DI.RAD.S_ITS ---
PROCEDURE: XR FEMUR RT MIN 2V INDICATIONS: History left osteoporotic fracture, evaluate for right femor TECHNIQUE: 2 views of the femur were acquired. COMPARISON: [facility], CR, XR PELVIS 1-2V, 08/09/2018, 21:02. FINDINGS: Bones: No fractures or dislocations. There is a 1 cm sclerotic focus in the proximal femur. There is degenerative joint disease in the right hip and knee. Soft tissues: No suspicious soft tissue calcifications or masses. IMPRESSION: 1. No fractures. 2. A sclerotic focus in the proximal left femur. If there is absence of history of cancer, this is most likely a bone island. Dictated by: Halle Davila M.D. on 08/12/2018 at 10:34 Approved by: Halle Davila M.D. on 08/12/2018 at 10:37
[2018-08-12] MEDS: CELECOXIB 200 MG CAPSULE PO ×2 (08:55→20:09)
[2018-08-12] MEDS: ACETAMINOPHEN 325 MG TABLET 975 MG PO ×3 (08:55→20:08)
[2018-08-12] MEDS: ASPIRIN EC 81 MG TABLET PO ×2 (08:55→20:09)
[2018-08-12] MEDS: SODIUM CHLORIDE 0.9% FLUSH 10 ML IV ×2 (08:58→20:08)
--- NOTE | 2018-08-12 10:16 | PM.DS.1 ---
History of Present Illness Date Patient Seen: 08/12/18 Time Patient Seen: 10:16 Chief complaint: GLF Narrative: Hospital day 3 postop day 1 following right mid femoral shaft fracture with IM gabe placement on 08/11/[address] Carmona. Patient also has right 3rd and 4th rib fractures and right shoulder pain. She states that she was having some problem with her right shoulder before her fall with range of motion and reaching. X-ray did not show any shoulder fracture but does note high riding humeral head and arthritis which can be a sign of chronic rotator cuff tear. She is complaining of pain mostly to her right shoulder. She has been up with physical therapy and they have stated that she could be at home. Patient and her both feel comfortable with her being at home. Has been using Tylenol and oxycodone for pain. Patient has been on Fosamax for osteoporosis which may be the culprit causing her femoral shaft fracture. She was also seen today by Dr. Carmona who recommends patient be seen by reiki practitioner for her osteoporosis to determine what other treatment could be done besides on Fosamax. Discharge Providers Date of admission: 08/10/18 00:36 Primary care physician: Cipriano Stockton MD Consults: 08/10/18 00:44 Consult to Orthopedic Surgery Routine Comment: Consulting Provider: Kierra Carmona Reason for consultation: femur fracture Has provider been notified: Yes 08/10/18 21:55 Consult to Discharge Planning Routine Comment: Consult to Physical Therapy Evaluate & Treat Comment: wbat Physician Instructions: Evaluate and Treat Consult to Respiratory Therapy Evaluate & Treat Comment: Physician Instructions: Evaluate and treat 08/11/18 11:21 Consult to Occupational Therapy Evaluate & Treat Comment: Physician Instructions: Evaluate and treat Discharge provider: Daljit Giron PA-C Exam Vital Signs (past 8 hours): - 08/12/18 05:45 08/12/18 08:17 Temperature 98.5 F 97.6 F Pulse Rate 78 89 Respiratory Rate 17 17 Blood Pressure 113/60 102/50 L Pulse Oximetry 97 92 Fraction of Inspired Oxygen 21 Oxygen Delivery Method Room Air Oxygen Flow Rate 0 Objective Labs Result Diagrams: 08/11/18 06:05 08/09/18 20:15 Discharge Plan Discharge Med Rec/Prescriptions Prescriptions: No Action celecoxib 200 mg capsule 200 mg PO BID RF: 0 gabapentin 300 mg capsule 300 mg PO ONCE HS RF: 0 Follow up/Referrals: Cipriano Stockton MD [Primary Care Provider] - Discharge Data Primary Care Provider: Cipriano Stockton Attending Provider: Silke Jeter Admit Date/Time: 08/10/18 00:36
--- NOTE | 2018-08-12 10:25 | P.PN_ITS ---
Subjective Date Patient Seen: 08/12/18 Time Patient Seen: 10:22 Interval history: Hospital day 3, postop day 1 following left mid femoral shaft fracture with IM gabe placement on 08/11/[address] Carmona. Patient also has right 3rd and 4th rib fractures. Complaining mostly of right shoulder pain at this time. She states she did have problem with her right shoulder before the fall with discomfort with reaching and motion. Her right shoulder x-ray does no cephalic elevation of humeral head and some arthritis which can be a sign of chronic rotator cuff tear. Patient was also seen by Dr. Carmona this morning. Dr. Carmona is concerned about the patient's Fosamax treatment having caused her femoral shaft fracture. She recommended patient be evaluated by mounter [facility] regarding her osteoporosis to see what other treatment could be done. Patient has worked with physical therapy who feel that she is stable for home. Patient and her both feel comfortable being at home. She is weight-bearing as tolerated to the left leg. Exam Vital Signs (past 8 hours): - 08/12/18 05:45 08/12/18 08:17 Temperature 98.5 F 97.6 F Pulse Rate 78 89 Respiratory Rate 17 17 Blood Pressure 113/60 102/50 L Pulse Oximetry 97 92 Fraction of Inspired Oxygen 21 Oxygen Delivery Method Room Air Oxygen Flow Rate 0 Narrative Exam Narrative: Alert, oriented no acute distress resting in bed. Right arm. Discomfort to right shoulder with range of motion of shoulder joint. Left leg. Aquacel dressing to left hip is dry without drainage or inflammation. No calf pain or swelling. Pulses symmetrical. Objective Labs Result Diagrams: 08/11/18 06:05 08/09/18 20:15 Assessment & Plan Post-op Postoperative Procedures Operation Date: 08/10/18 20:45 Actual Procedures Side Surgeon p Intramedullary Nailing Femur Left Kierra Carmona MD Plan: At Dr. Carmona recommends obtaining right shoulder MRI to rule out rotator cuff injury or bony injury. Will also obtain a right femur x-ray to check for any pathologic changes. Patient is orthopedically stable for discharge to home when she is cleared by hospitalist. She will need a postop visit at the orthopedic office in 10-12 days. Will plan to start physical therapy after that visit for her left leg and right shoulder. Patient will also need a referral to [facility]ounter [facility] regarding her osteoporosis treatment.
--- NOTE | 2018-08-12 11:01 | PC.NURSE ---
Addendum entered by Rosa Manzanares R.N. 08/12/18 13:52: PAIN/VITALS/DC - pt continues to have some lightheadedness when up, bp lunch was 89/50, spoke to office re plan for pt, possible dc, bp, xr, mri results, he stated that he saw pt briefly this am as courtesy but ortho office should be doing any discharge, called Shamar Giron PA as his note said hospitalist following and explained stated ortho should be in charge of any dc, he had reviewed the xr but not shoulder MRI and informed of lower bp and some dizziness when up, Shamar Giron said ortho will review the mri tomorrow and eval in am for DC and not to plan for today, spoke to pt and spouse and they agree, also discussed with SS. Original Note: AM NOTE - pt up to chair at shift change, states l hip discomfort 4 on scale 0/10, after breakfast, direct sales representative assisted out chair to toilet for void and bm, direct sales representative reported pt states she felt dizzy, checked pt and dizziness did resolve, assisted back to bed bp 102/50, enc fluids, aquacell dsg d,i with shadow drainage at distal end, later am, taken via [facility] for xr lle and r shoulder.
--- NOTE | 2018-08-12 11:30 | PT.IPTN ---
Current Diagnoses Nondisplaced comminuted fracture of shaft of left femur, initial encounter for closed fracture (08/10/18) Surgery Performed Operation Date: 08/10/18 20:45 Actual Procedures p Intramedullary Nailing Femur(Left) - Kierra Carmona MD Physical Therapy Treatment Note M2 PT-IP Current Condition Start: 08/11/18 10:46 Freq: NEEDED Status: Active Protocol: Document 08/11/18 10:47 AMH (Rec: 08/11/18 11:28 AMH [id number]) Physical Therapy Current Condition Current Condition Evaluation Date 08/11/18 Treatment Diagnosis Closed left femoral fx and right rib fx, s/p intramedullary rodding L femur Onset Date 08/10/18 Precautions Other Precautions WBAT left LE, discharge home when safe Weight Bearing Status Weight Bearing Status Weight Bear as Tolerated M3 PT-IP Subjective Start: 08/11/18 10:46 Freq: NEEDED Status: Active Protocol: Document 08/12/18 11:32 GGD (Rec: 08/12/18 12:00 GGD [id number]) Subjective Physical Therapy Visit Type Type Treatment Note Visit Start Time 11:05 Visit Stop Time 11:30 Total Visit Minutes 25 Physical Therapy Visit Comments Patient Comments Pt willing to work with therapy. Therapy Pain Assessment Pain When Pain Assessed During Mobility Pain Present Pain Present Pain Reported M4 PT-IP Mobility and Gait Start: 08/11/18 10:46 Freq: NEEDED Status: Active Protocol: Document 08/12/18 11:32 GGD (Rec: 08/12/18 12:00 GGD [id number]) PT-Bed Mobility Assessment Supine to Sit Supine to Sit Minimal Assistance 1 Person Assistance Bedrails Scooting Scooting to Edge of Bed Contact Guard Assistance PT-Transfer Assessment Sit to and From Stand Sit to and from Stand Contact Guard Assistance 1 Person Assistance Use of Upper Extremities Equipment Transfer Assistive Device Gait Belt Front Wheeled Walker Orthotic/Prosthetic Devices or Brace: No Transfers Transfer Destination Chair Transfer Ability Level of Assist Contact Guard Assistance Use of Upper Extremities Gait Assessment Gait Gait Assistance Required: Contact Guard Assist Distance (Feet) 35 Able to Maintain Weight Bearing Status Yes During Gait Assistive Devices Assistive Device Front Wheeled Walker Orthotic/Prosthetic Devices or Brace: No Gait Deviations General Gait Pattern Antalgic Decreased Stride Length Decreased Feet Clearance Factors Limiting Gait Function Factors Limiting Gait Function Limited Range of Motion Pain M5 PT-IP Objective Assessments Start: 08/11/18 10:46 Freq: NEEDED Status: Active Protocol: Document 08/11/18 10:47 AMH (Rec: 08/11/18 11:28 AMH [id number]) Orientation Orientation/Cognition Level of Alertness Alert Orientation Name Age Birthday Month Date Year Day of Week Place Situation Language Function Ability No Deficits Noted Safety Awareness Understands Safety Issues Memory Description No Deficits Noted Gross Range of Motion Upper Extremity ROM Assessment Right Impaired Impairments pain with reaching overhead right arm Lower Extremity ROM Assessment Bilaterally Impaired Impairments left knee flexion to 40 degrees AROM Right knee flexion to 90 deg to help with scooting in bed but some pain with right knee ROM as well Strength Upper Extremity Strength Assessment Right Impaired Shoulder pain with resistance throught the right UE due to fall on right shoulder Lower Extremity Strength Assessment Bilaterally Impaired Comments Strength Comments strength not formally tested due to s/p surgery, pt needed assist to help move the left LE in bed Right LE weakness 4/5 MMT generally for R LE Coordination Assessment Gross Coordination Gross Coordination WNL Sensation Assessment Sensation Gross Sensation WNL Muscle Tone Muscle Tone WNL Yes M6 PT-IP Treatment Start: 08/11/18 10:46 Freq: NEEDED Status: Active Protocol: Document 08/12/18 11:32 GGD (Rec: 08/12/18 12:00 GGDain [id number]) Physical Therapy Treatment Exercises Exercises Ankle Pumps Quad Sets Heel Slides Seated Knee Flexion/Extension M7 PT-IP Assessment and Plan Start: 08/11/18 10:46 Freq: NEEDED Status: Active Protocol: Document 08/12/18 11:32 GGD (Rec: 08/12/18 12:00 GGD [id number]) PT Summary Assessment and Plan Summary Assessment Summary Pt improving with mobility. She was able to progress gait distance. She needed less assist with bed mobility. She will need stair training, before D/C home. Frequency of Treatment Frequency Of Treatment Twice a Day Treatment Plan Physical Therapy Treatment Plan Bed Mobility Training Transfer Training Gait Training Therapeutic Exercise Balance Retraining Other Recommendations and Next Treatment stair training and caregiver Focus training. Recommendations To Nursing Amount of Assist Needed 1 Person Assist Discharge Recommendations PT Discharge Recommendations Home with Assistance Home Health
--- NOTE | 2018-08-12 13:15 | PT.IPTN ---
Current Diagnoses Nondisplaced comminuted fracture of shaft of left femur, initial encounter for closed fracture (08/10/18) Surgery Performed Operation Date: 08/10/18 20:45 Actual Procedures p Intramedullary Nailing Femur(Left) - Kierra Carmona MD Physical Therapy Treatment Note M2 PT-IP Current Condition Start: 08/11/18 10:46 Freq: NEEDED Status: Active Protocol: Document 08/11/18 10:47 [facility] (Rec: 08/11/18 11:28 [facility] [id number]) Physical Therapy Current Condition Current Condition Evaluation Date 08/11/18 Treatment Diagnosis Closed left femoral fx and right rib fx, s/p intramedullary rodding L femur Onset Date 08/10/18 Precautions Other Precautions WBAT left LE, discharge home when safe Weight Bearing Status Weight Bearing Status Weight Bear as Tolerated M3 PT-IP Subjective Start: 08/11/18 10:46 Freq: NEEDED Status: Active Protocol: Document 08/12/18 13:15 GGD (Rec: 08/12/18 14:03 GGD [id number]) Subjective Physical Therapy Visit Type Type Treatment Note Visit Start Time 13:00 Visit Stop Time 13:15 Total Visit Minutes 15 Number of SENIOR SOFTWARE DEVELOPMENT MANAGER Visits 2 Physical Therapy Visit Comments Patient Comments Pt willing to work with therapy, but had low BP. Therapy Pain Assessment Pain When Pain Assessed During Mobility Pain Present Pain Present Pain Reported M4 PT-IP Mobility and Gait Start: 08/11/18 10:46 Freq: NEEDED Status: Active Protocol: Document 08/12/18 13:15 GGD (Rec: 08/12/18 14:03 GGD [id number]) PT-Transfer Assessment Sit to and From Stand Sit to and from Stand Contact Guard Assistance 1 Person Assistance Use of Upper Extremities Equipment Transfer Assistive Device Gait Belt Front Wheeled Walker Orthotic/Prosthetic Devices or Brace: No Transfers Transfer Destination Chair Transfer Ability Level of Assist Contact Guard Assistance Use of Upper Extremities Comments Mobility Comments Pt 130/85 in standing, pt C/O dizziness. M5 PT-IP Objective Assessments Start: 08/11/18 10:46 Freq: NEEDED Status: Active Protocol: Document 08/11/18 10:47 [facility] (Rec: 08/11/18 11:28 [facility] [id number]) Orientation Orientation/Cognition Level of Alertness Alert Orientation Name Age Birthday Month Date Year Day of Week Place Situation Language Function Ability No Deficits Noted Safety Awareness Understands Safety Issues Memory Description No Deficits Noted Gross Range of Motion Upper Extremity ROM Assessment Right Impaired Impairments pain with reaching overhead right arm Lower Extremity ROM Assessment Bilaterally Impaired Impairments left knee flexion to 40 degrees AROM Right knee flexion to 90 deg to help with scooting in bed but some pain with right knee ROM as well Strength Upper Extremity Strength Assessment Right Impaired Shoulder pain with resistance throught the right UE due to fall on right shoulder Lower Extremity Strength Assessment Bilaterally Impaired Comments Strength Comments strength not formally tested due to s/p surgery, pt needed assist to help move the left LE in bed Right LE weakness 4/5 MMT generally for R LE Coordination Assessment Gross Coordination Gross Coordination WNL Sensation Assessment Sensation Gross Sensation WNL Muscle Tone Muscle Tone WNL Yes M6 PT-IP Treatment Start: 08/11/18 10:46 Freq: NEEDED Status: Active Protocol: Document 08/12/18 13:15 GGD (Rec: 08/12/18 14:03 GGD [id number]) Physical Therapy Treatment Exercises Exercises Ankle Pumps Quad Sets Heel Slides Seated Knee Flexion/Extension M7 PT-IP Assessment and Plan Start: 08/11/18 10:46 Freq: NEEDED Status: Active Protocol: Document 08/12/18 13:15 GGD (Rec: 08/12/18 14:03 GGD [id number]) PT Summary Assessment and Plan Summary Assessment Summary Pt c/O dizziness and lightheaded in standing. She was unable to progress gait due to C/O's. Pt was CGA for sit <> stand. Frequency of Treatment Frequency Of Treatment Twice a Day Treatment Plan Physical Therapy Treatment Plan Bed Mobility Training Transfer Training Gait Training Therapeutic Exercise Balance Retraining Other Recommendations and Next Treatment stair training and caregiver Focus training. Recommendations To Nursing Amount of Assist Needed 1 Person Assist Discharge Recommendations PT Discharge Recommendations Home with Assistance Home Health
--- NOTE | 2018-08-12 14:20 | OT.IP.TRT ---
Current Diagnoses Nondisplaced comminuted fracture of shaft of left femur, initial encounter for closed fracture (08/10/18) Surgery Performed Operation Date: 08/10/18 20:45 Actual Procedures p Intramedullary Nailing Femur(Left) - Kierra Carmona MD Occupational Therapy Treatment Note M2 OT-IP Current Condition Start: 08/11/18 16:01 Freq: Status: Active Protocol: Document 08/11/18 16:01 CGR (Rec: 08/11/18 16:16 CGR [email or web address]) Occupational Therapy Current Condition Current Condition Evaluation Date 08/11/18 Treatment Diagnosis GLF with L hip fx and R rib fx Diagnosis Onset Date 08/10/18 Weight Bearing Status Weight Bearing Status Full Weight Bearing M3 OT- IP Subjective and Pain Start: 08/11/18 16:01 Freq: Status: Active Protocol: Document 08/12/18 14:10 CCC (Rec: 08/12/18 14:20 [facility] [email or web address]) OT- Subjective Occupational Therapy Visit Type Type Treatment Note Visit Start Time 14:00 Visit Stop Time 14:08 Total Visit Minutes 8 Occupational Therapy Visit Comments Patient Comments Pt states not going home today , but hoping to go tomorrow. M4 OT- IP ADL's Start: 08/11/18 16:01 Freq: Status: Active Protocol: Document 08/12/18 14:10 CCC (Rec: 08/12/18 14:20 [facility] [email or web address]) OT ADL-Toileting Comments OT Toileting Comments Spoke at length at with pt's and pt. Pt's wa able to chart picker FWW, wire weaver cloth, and grab bar. Suggested that go back and chart picker BSC, shower chair , and sock aid. In addition may also be helpful to get another FWW for upstairs to use. OT ADL-Bathing Comments OT Bathing Comments Pt symptomatic when up today and therefore to do shower tomorrow when more appropriate . M5 OT- IP IADL's Start: 08/11/18 16:01 Freq: Status: Active Protocol: Document 08/11/18 16:01 CGR (Rec: 08/11/18 16:16 CGR [email or web address]) OT-Instrumental Activities of Daily Living Deficits IADL Deficits Identified Deficits Home Safety Awareness Awareness of Need for Assistance at Home Good Awareness Ability to Problem Solve Emergency Able to Problem Solve Situations Medication Management Medication Management No Deficits Identified Money Management Money Management No Deficits Identified Meal Preparation Meal Preparation Caregiver Provides Assist Air Box Tester Air Box Tester Caregiver Provides Assist Driving Driving Comments Pt not to drive till oked by . M6 OT- IP Functional Cognition Start: 08/11/18 16:01 Freq: Status: Active Protocol: Document 08/11/18 16:01 CGR (Rec: 08/11/18 16:16 CGR [email or web address]) Cognitive Factors Limiting Selfcare Function Cognitive Ability Level of Alertness Alert Patient Orientation Name Age Birthday Month Date Year Day of Week Place Situation Attention Span Ability Capable of Focused Attention Capable of Sustained Attention Ability to Follow Commands Able to Follow Multi-Step Commands Memory Description No Deficits Noted Safety Awareness No Deficits Noted Problem Solving Ability No deficits Noted Executive Function Ability No Deficits Noted Abstract Thinking Ability No Deficits Noted OT- Vision and Hearing OT- Hearing Assessment OT- Hearing Assessment WFL OT- Vision Assessment Visual Acuity Glasses All The Time Visual Attentiveness WFL Occular Pursuits WFL Visual Convergence WFL Visual Thomas WFL M7 OT- IP Mobility and Balance Start: 08/11/18 16:01 Freq: Status: Active Protocol: Document 08/11/18 16:01 CGR (Rec: 08/11/18 16:16 CGR [email or web address]) OT- Bed Mobility Assessment Supine to Sit Supine to Sit Assist Maximum Assistance Head of Bed Elevated Bedrails Scooting Scooting to Edge of Bed Maximum Assistance Head of Bed Elevated Bedrails OT-Transfer Assessment Sit to and From Stand Sit to and from Stand Contact Guard Assistance Transfers Transfer Ability Contact Guard Assistance Technique Transfer Destination Bed Chair Transfer Technique Stand Step Pivot Devices Transfer Assistive Devices Gait Belt Front Wheeled Walker Comments Mobility Comments Pt did well with mobility once out of the bed. Her shoulder injury is limiting her ability to pull herself up in bed. 7/ Talked through car transfers with pt and , pt's mother in law to pick her up tomorrow. OT- Gait Assessment Gait Gait Assistance Required: Contact Guard Assist Able to Maintain Weight Bearing Status Yes During Gait Assistive Devices Assistive Device Gait Belt Front Wheeled Walker OT- Balance Assessment Sitting Balance and Reactions Static Sitting Balance Ability Normal Dynamic Sitting Balance Ability Normal M8 OT- IP Objective Assessments Start: 08/11/18 16:01 Freq: Status: Active Protocol: Document 08/11/18 16:01 CGR (Rec: 08/11/18 16:16 CGR [email or web address]) OT Gross Range of Motion Upper Extremity Range of Motion Assessment Within Functional Limits ROM Impairments But with pain noted to the R shoulder. OT Strength Upper Extremity Strength Assessment Within Functional Limits Comments Strength Comments R shld not tested but grossly 4/5. Noted significant brusing to the R hand. OT- Coordination Assessment Upper Extremity Finger to Nose Test Within Functional Limits Finger Tapping Test Within Functional Limits OT-Muscle Tone Assessment Muscle Tone WNL Yes OT Sensation Assessment Comments Summary Comments No deficits Edema Edema Absent M9 OT- IP Assessment and Plan Start: 08/11/18 16:01 Freq: Status: Active Protocol: Document 08/12/18 14:10 [facility] (Rec: 08/12/18 14:20 [facility] [email or web address]) OT Summary Assessment and Plan Potential Rehabilitation Potential Excellent Analytic Complexity at Evaluation Low Summary OT Impairments Pain Strength Balance Functional Mobility Self-Feeding Grooming Dressing Toileting Bathing Toilet Transfers Shower Transfers Assessment Summary Pt to shower tomorrow and continue family training with prior to going home. Goals Grooming Goal Independent Dressing Goal Independent Dressing Stick Appeals Writer Sock Aid Toileting Goal Independent Bathing Goal Independent Toilet Transfer Goal Independent Shower Transfer Goal Independent Days to Meet Goals 2 Frequency of Treatment Frequency Of Treatment Once a Day Treatment Plan OT Treatment Plan ADL Training Functional Mobility Patient/Family Education Discharge Planning Other Treatment Recommendations and Next Shower Treatment Focus Discharge Recommendations OT Discharge Recommendations Home with Assistance Home Equipment Needs shower chair, HHSP, BSC
--- NOTE | 2018-08-12 16:47 | PC.NURSE ---
Addendum entered by Laura Chaudhari R.N. 08/12/18 21:51: Admits to slight dizziness when up s/p oxycodone administration. States improved over earlier today. Steady gait with assistance. Returned to bed and BL calf scd's replaced. When reassessed, resting quietly in bed with eyes closed. No signs of distress or discomfort. Ice to left hip in place. Addendum entered by Laura Chaudhari R.N. 08/12/18 19:32: BL calf scd's were replaced to pt upon pt's return to bed. C/o right posterior shoulder pain 09/17, stating, That's where I fell. No notable bruising. Ice to posterior right shoulder as per pt agreement. Oxycodone administered as per emar. Encouraged to call for needs. Addendum entered by Laura Chaudhari R.N. 08/12/18 19:01: Pt denies dizziness when up to bathroom with assistance. Original Note: Pt up in recliner @ beginning of shift. Spouse present sitting in window seat. Pt admits to right shoulder pain /10 and declines ice to site. Denies hip pain. Offered analgesia to pt and pt declines. IV access established by Sherri.Bonita Britton. 20 gauge to right forearm.
--- NOTE | 2018-08-12 16:50 | CM.DANOTE ---
DCP: continued: case discussed in Team Rounds. PT and OT note pt doing well for a d/c to home setting with her to follow. Anticipate likely d/c tomorrow if pt continued stable. Orthopedic team is consulting. Pt will also need ok for d/c from her PCP Dr. Stockton or rounding partner.
[2018-08-12] MEDS: DOCUSATE 100 MG CAPSULE PO (20:09)
[2018-08-12] MEDS: MAGNESIUM HYDROXIDE 30 ML UDC PO (20:11)
[2018-08-13] MEDS: OXYCODONE IR 5 MG TABLET PO ×3 (01:15→12:23)
[2018-08-13 01:32] VITALS: BP 112/63; PULSE 76; RESP 16; TEMP 36.9; O2SAT 98
[2018-08-13 05:46] VITALS: BP 124/62; PULSE 79; RESP 16; TEMP 36.9; O2SAT 92
[2018-08-13 06:05] VITALS: BP 124/62; PULSE 79; RESP 16; TEMP 36.9; O2SAT 92
[2018-08-13 08:00] VITALS: BP 140/73; PULSE 88; RESP 16; TEMP 37.1; O2SAT 96
[2018-08-13] MEDS: DOCUSATE 100 MG CAPSULE PO (08:47)
[2018-08-13] MEDS: CELECOXIB 200 MG CAPSULE PO (08:47)
[2018-08-13] MEDS: ACETAMINOPHEN 325 MG TABLET 975 MG PO (08:47)
[2018-08-13] MEDS: ASPIRIN EC 81 MG TABLET PO (08:47)
[2018-08-13] MEDS: SODIUM CHLORIDE 0.9% FLUSH 10 ML IV (08:49)
--- NOTE | 2018-08-13 09:06 | PM.PN.1 ---
Subjective Date Patient Seen: 08/13/18 Time Patient Seen: 09:06 Exam Vital Signs (past 8 hours): - 08/13/18 01:32 08/13/18 05:46 08/13/18 06:05 Temperature 98.4 F 98.5 F 98.5 F Pulse Rate 76 79 79 Respiratory Rate 16 16 16 Blood Pressure 112/63 124/62 124/62 Pulse Oximetry 98 92 92 08/13/18 08:00 Temperature 98.7 F Pulse Rate 88 Respiratory Rate 16 Blood Pressure 140/73 Pulse Oximetry 96 Fraction of Inspired Oxygen 21 Oxygen Delivery Method Room Air Oxygen Flow Rate 0 Objective Labs Result Diagrams: 08/11/18 06:05 08/09/18 20:15
--- NOTE | 2018-08-13 09:18 | PM.DS.1 ---
History of Present Illness Date Patient Seen: 08/13/18 Time Patient Seen: 09:18 Chief complaint: GLF Narrative: Patient's right shoulder pain is moderate to severe. Minimal to no pain left hip/left leg. No fever chills. No nausea vomiting. No dizziness. Patient feels ready for discharge home. Patient's is home available to assist her. Discharge Providers Date of admission: 08/10/18 00:36 Discharge Date: 08/13/18 Primary care physician: Cipriano Stockton MD Consults: 08/10/18 00:44 Consult to Orthopedic Surgery Routine Comment: Consulting Provider: Kierra Carmona Reason for consultation: femur fracture Has provider been notified: Yes 08/10/18 21:55 Consult to Discharge Planning Routine Comment: Consult to Physical Therapy Evaluate & Treat Comment: wbat Physician Instructions: Evaluate and Treat Consult to Respiratory Therapy Evaluate & Treat Comment: Physician Instructions: Evaluate and treat 08/11/18 11:21 Consult to Occupational Therapy Evaluate & Treat Comment: Physician Instructions: Evaluate and treat Discharge provider: Daryn Marino PA-C Summary Discharge Diagnosis: Status post intramedullary rodding left femur Right shoulder MRI performed August 12, 2018 shows 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 Moderate AC joint and glenohumeral joint osteoarthritis. Mildly displaced acute fractures of the posterior lateral right 3rd and 4th ribs Hospital Course: Patient seen in the emergency room for ground level fall. Patient found to have grossly displaced left midshaft femur fracture and admitted to hospital. Intramedullary rodding left femur August 11, [address] Carmona. Injury to her right shoulder with subsequent MRI showing rotator cuff tear. Rib fractures right third and fourth. Patient has remained stable after surgery and will be discharged home today. Status at Discharge Cognitive/behavioral status at discharge: at baseline, oriented Functional status at discharge: uses cane/walker Overall status at discharge: patient is progressing back to baseline Time Spent with Patient Less than 30 minutes Exam Vital Signs (past 8 hours): - 08/13/18 01:32 08/13/18 05:46 08/13/18 06:05 Temperature 98.4 F 98.5 F 98.5 F Pulse Rate 76 79 79 Respiratory Rate 16 16 16 Blood Pressure 112/63 124/62 124/62 Pulse Oximetry 98 92 92 08/13/18 08:00 Temperature 98.7 F Pulse Rate 88 Respiratory Rate 16 Blood Pressure 140/73 Pulse Oximetry 96 Fraction of Inspired Oxygen 21 Oxygen Delivery Method Room Air Oxygen Flow Rate 0 Narrative Exam Narrative: Pleasant 63-year-old female in no apparent distress resting comfortably in bedside chair. Right shoulder shows mild generalized swelling but no erythema or ecchymosis. Motor function and sensation is grossly intact to the distal right upper extremity. Left leg dressings are clean, dry and intact. Motor functions intact distal left lower extremity. Sensation grossly intact to light touch. Left leg is warm and dry. Objective Labs Result Diagrams: 08/11/18 06:05 08/09/18 20:15 Discharge Plan Discharge Plan Patient Disposition: Home Discharge comment: DC home today after PT Discharge Med Rec/Prescriptions Prescriptions: New acetaminophen 325 mg Tablet 975 mg PO TID Qty: 90 RF: 0 aspirin 81 mg Tablet,Delayed Release (Dr/Ec) 81 mg PO BID Qty: 60 RF: 0 oxycodone 5 mg Tablet 5 mg PO Q3HR PRN (Reason: Pain, Moderate (4-6)) Qty: 30 RF: 0 Continued celecoxib 200 mg capsule 200 mg PO BID RF: 0 gabapentin 300 mg capsule 300 mg PO ONCE HS RF: 0 Follow up/Referrals: Cipriano Stockton MD [Primary Care Provider] - Kierra Carmona MD [Physician] - (10-12 days SNO ) Provider Discharge Instructions Diet: Diet as Tolerated Activity: Sling right arm for comfort, pendulum exercise several times daily right upper extremity, weight-bearing as tolerated left lower extremity Cold/Heat Therapy: Apply ice to right shoulder, left leg as needed Skin/Wound/Dressing Care Report to your healthcare provider any signs of infection, such as:: chills, fever, increased pain, unusual drainage and unusual redness Dressing: Keep dressing clean and dry Visit Report/Discharge Packet Instructions: DI for Rotator Cuff Injury, DI for Rib Fracture Visit Report Forms: Stroke Signs & Symptoms Discharge Data Primary Care Provider: Cipriano Stockton Attending Provider: Silke Jeter Admit Date/Time: 08/10/18 00:36
--- NOTE | 2018-08-13 10:20 | PT.IPTN ---
Current Diagnoses Nondisplaced comminuted fracture of shaft of left femur, initial encounter for closed fracture (08/10/18) Surgery Performed Operation Date: 08/10/18 20:45 Actual Procedures p Intramedullary Nailing Femur(Left) - Kierra Carmona MD Physical Therapy Treatment Note M2 PT-IP Current Condition Start: 08/11/18 10:46 Freq: NEEDED Status: Active Protocol: Document 08/11/18 10:47 [facility] (Rec: 08/11/18 11:28 [facility] [id number]) Physical Therapy Current Condition Current Condition Evaluation Date 08/11/18 Treatment Diagnosis Closed left femoral fx and right rib fx, s/p intramedullary rodding L femur Onset Date 08/10/18 Precautions Other Precautions WBAT left LE, discharge home when safe Weight Bearing Status Weight Bearing Status Weight Bear as Tolerated M3 PT-IP Subjective Start: 08/11/18 10:46 Freq: NEEDED Status: Active Protocol: Document 08/13/18 10:20 GGD (Rec: 08/13/18 11:47 GGD [email or web address]) Subjective Physical Therapy Visit Type Type Treatment Note Visit Start Time 09:55 Visit Stop Time 10:20 Total Visit Minutes 25 Number of TOWN JUSTICE Visits 3 Physical Therapy Visit Comments Patient Comments Pt hopes to D/C home today. Therapy Pain Assessment Pain When Pain Assessed During Mobility Pain Present Pain Present Pain Reported M4 PT-IP Mobility and Gait Start: 08/11/18 10:46 Freq: NEEDED Status: Active Protocol: Document 08/13/18 10:20 GGD (Rec: 08/13/18 11:47 GGD [email or web address]) PT-Transfer Assessment Sit to and From Stand Sit to and from Stand Standby Assistance 1 Person Assistance Use of Upper Extremities Equipment Transfer Assistive Device Gait Belt Front Wheeled Walker Orthotic/Prosthetic Devices or Brace: No Transfers Transfer Destination Chair Wheelchair Transfer Ability Level of Assist Contact Guard Assistance Use of Upper Extremities Gait Assessment Gait Gait Assistance Required: Standby Assistance Distance (Feet) 20 Able to Maintain Weight Bearing Status Yes During Gait Assistive Devices Assistive Device Front Wheeled Walker Orthotic/Prosthetic Devices or Brace: No Gait Deviations General Gait Pattern Antalgic Decreased Stride Length Decreased Feet Clearance Factors Limiting Gait Function Factors Limiting Gait Function Limited Range of Motion Pain Stair Climbing Assessment Evaluation Level of Assist On Stairs Contact Guard Assistance Devices Stair Climbing Assistive Devices Front Wheel Walker Left Railing Right Railing Technique/Endurance Stair Climbing Direction Ascend and Descend Stair Climbing Technique Step to Step Number of Steps Climbed 3 Stair Climbing Set # Repetitions (reps) 1 Comments Stair Climbing Comments 1 step B rails and then 2 steps with FWW. Min a for FWW stabilization. M5 PT-IP Objective Assessments Start: 08/11/18 10:46 Freq: NEEDED Status: Active Protocol: Document 08/11/18 10:47 [facility] (Rec: 08/11/18 11:28 [facility] [id number]) Orientation Orientation/Cognition Level of Alertness Alert Orientation Name Age Birthday Month Date Year Day of Week Place Situation Language Function Ability No Deficits Noted Safety Awareness Understands Safety Issues Memory Description No Deficits Noted Gross Range of Motion Upper Extremity ROM Assessment Right Impaired Impairments pain with reaching overhead right arm Lower Extremity ROM Assessment Bilaterally Impaired Impairments left knee flexion to 40 degrees AROM Right knee flexion to 90 deg to help with scooting in bed but some pain with right knee ROM as well Strength Upper Extremity Strength Assessment Right Impaired Shoulder pain with resistance throught the right UE due to fall on right shoulder Lower Extremity Strength Assessment Bilaterally Impaired Comments Strength Comments strength not formally tested due to s/p surgery, pt needed assist to help move the left LE in bed Right LE weakness 4/5 MMT generally for R LE Coordination Assessment Gross Coordination Gross Coordination WNL Sensation Assessment Sensation Gross Sensation WNL Muscle Tone Muscle Tone WNL Yes M6 PT-IP Treatment Start: 08/11/18 10:46 Freq: NEEDED Status: Active Protocol: Document 08/13/18 10:20 GGD (Rec: 08/13/18 11:47 GGD [email or web address]) Physical Therapy Treatment Exercises Exercises Ankle Pumps Quad Sets Heel Slides Seated Knee Flexion/Extension M7 PT-IP Assessment and Plan Start: 08/11/18 10:46 Freq: NEEDED Status: Active Protocol: Document 08/13/18 10:20 GGD (Rec: 08/13/18 11:47 GGD [email or web address]) PT Summary Assessment and Plan Summary Assessment Summary Pt improving with mobility. She limit tolerance to gait due to pain. PT safe for home D/C when medically stable. Frequency of Treatment Frequency Of Treatment Twice a Day Treatment Plan Physical Therapy Treatment Plan Bed Mobility Training Transfer Training Gait Training Therapeutic Exercise Balance Retraining Other Recommendations and Next Treatment stair training and caregiver Focus training. Recommendations To Nursing Amount of Assist Needed 1 Person Assist Discharge Recommendations PT Discharge Recommendations Home with Assistance Home Health
--- NOTE | 2018-08-13 10:58 | PC.NURSE ---
Addendum entered by Rosa Manzanares R.N. 08/13/18 12:39: DC - when spouse returned, reviewed dc instructions with pt and family, belongings had been taken to car by spouse, including cell phone and collaborative physician, given 5mg po oxycodone after lunch and prior to dc, sl dc'd, tsf to wc and escorted by scientific illustrator to car. Addendum entered by Rosa Manzanares R.N. 08/13/18 11:08: MS - stair practice completed with phys therapy and cleared for dc home. Original Note: AM NOTE - pt up to chair for breakfast, states r shoulder discomfort 7 on scale o/10, more so than l hip, given scheduled tylenol and 5mg oxycodone with meal and medication provided adequate relief, 3 on scale 0/10, spoke with Daryn CLAROS and he reviewed reports, plan for dc home today after phys therapy, initially r sling ordered for comfort, then preferred no sling, pendulum exercises only, pt up and showered with OT, no dizziness reported this am, hr 72 reg w/murmur, hx Reynauds and wearing gloves, scripts given to spouse to fill prior to dc, will return at lunch after changing vehicles.
--- NOTE | 2018-08-13 12:05 | CM.DPC ---
DCP Cont: Patient is to be discharged home today. Discussed patient at team rounds, and physical therapy is recommending home health. Discussed with Dr. Herndon, and asked him to sign face to face, since Daryn is P.A. Daryn was not sure if she needed home health, but if patient wants it, can order it. Met with patient at home. She stated, home health would be helpful, physical and occupational therapy. She has no preference as far as agencies. Noticed that patient has [employer], and most home health agencies do not accept. Called Franci at [facility]. She stated, they may be able to establish a one time contract. Let her know that this field nurse case manager would go ahead and fax information on patient. Faxed over face sheet, face to face, orders, as well as operative report and discharge summary. P: Patient is to be discharged home today. Went ahead and ordered home health for patient through [facility]. Sugar Contreras RN/Accounting Systems Analyst
--- NOTE | 2018-08-13 12:15 | OT.IP.TRT ---
Current Diagnoses Nondisplaced comminuted fracture of shaft of left femur, initial encounter for closed fracture (08/10/18) Surgery Performed Operation Date: 08/10/18 20:45 Actual Procedures p Intramedullary Nailing Femur(Left) - Kierra Carmona MD Occupational Therapy Treatment Note M2 OT-IP Current Condition Start: 08/11/18 16:01 Freq: Status: Active Protocol: Document 08/11/18 16:01 CGR (Rec: 08/11/18 16:16 CGR [email or web address]) Occupational Therapy Current Condition Current Condition Evaluation Date 08/11/18 Treatment Diagnosis GLF with L hip fx and R rib fx Diagnosis Onset Date 08/10/18 Weight Bearing Status Weight Bearing Status Full Weight Bearing M3 OT- IP Subjective and Pain Start: 08/11/18 16:01 Freq: Status: Active Protocol: Document 08/13/18 12:04 CGR (Rec: 08/13/18 12:15 CGR [email or web address]) OT- Subjective Occupational Therapy Visit Type Type Treatment Note Visit Start Time 09:05 Visit Stop Time 10:02 Total Visit Minutes 57 Notes Pt planned for discharge home today. Occupational Therapy Visit Comments Patient Comments I am ready to go home. OT Pain Assessment Pain When Pain Assessed At Rest Pain Present Pain Present Pain Reported Location Right Posterior Shoulder Intensity 5 Scale Used Numeric (1 - 10) Management Techniques Re-positioning M4 OT- IP ADL's Start: 08/11/18 16:01 Freq: Status: Active Protocol: Document 08/13/18 12:04 CGR (Rec: 08/13/18 12:15 CGR [email or web address]) OT ADL-Grooming General Evaluation Grooming Ability Standby Assistance Areas Needing Assistance Retrieving/Set-up of Grooming Items Combing/Brushing Hair Comments OT Grooming Comments seated in chair after shower. OT ADL-Dressing General Eval Upper Body Dressing Ability Independent Lower Body Dressing Ability Standby Assistance Minimal Assistance Areas Needing Assistance Pull-Over Shirt Underpants/Brief Socks Assistive Devices Dressing Assistive Devices Dressing Stick Medical Supervisor Sock Aid Comments OT Dressing Comments Pt donned clothing for going home. Able to use hip kit items for dressing but had difficulty with donning underwear. OT ADL-Bathing Bathing Type Bathing Type Shower General Evaluation Bathing Ability Minimal Assistance Areas Needing Assistance Retrieving/Setting Up Items Wash/Dry Back Wash/Dry Lower Extremities Devices Bathing Equipment Shower Chair with Arms M5 OT- IP IADL's Start: 08/11/18 16:01 Freq: Status: Active Protocol: Document 08/11/18 16:01 CGR (Rec: 08/11/18 16:16 CGR [email or web address]) OT-Instrumental Activities of Daily Living Deficits IADL Deficits Identified Deficits Home Safety Awareness Awareness of Need for Assistance at Home Good Awareness Ability to Problem Solve Emergency Able to Problem Solve Situations Medication Management Medication Management No Deficits Identified Money Management Money Management No Deficits Identified Meal Preparation Meal Preparation Caregiver Provides Assist Key Punch Operator Key Punch Operator Caregiver Provides Assist Driving Driving Comments Pt not to drive till oked by . M6 OT- IP Functional Cognition Start: 08/11/18 16:01 Freq: Status: Active Protocol: Document 08/11/18 16:01 CGR (Rec: 08/11/18 16:16 CGR [email or web address]) Cognitive Factors Limiting Selfcare Function Cognitive Ability Level of Alertness Alert Patient Orientation Name Age Birthday Month Date Year Day of Week Place Situation Attention Span Ability Capable of Focused Attention Capable of Sustained Attention Ability to Follow Commands Able to Follow Multi-Step Commands Memory Description No Deficits Noted Safety Awareness No Deficits Noted Problem Solving Ability No deficits Noted Executive Function Ability No Deficits Noted Abstract Thinking Ability No Deficits Noted OT- Vision and Hearing OT- Hearing Assessment OT- Hearing Assessment WFL OT- Vision Assessment Visual Acuity Glasses All The Time Visual Attentiveness WFL Occular Pursuits WFL Visual Convergence WFL Visual Thomas WFL M7 OT- IP Mobility and Balance Start: 08/11/18 16:01 Freq: Status: Active Protocol: Document 08/13/18 12:04 CGR (Rec: 08/13/18 12:15 CGR [email or web address]) OT-Transfer Assessment Sit to and From Stand Sit to and from Stand Standby Assistance Transfers Transfer Ability Standby Assistance Technique Transfer Destination Chair Shower Stall Transfer Technique Stand Step Pivot Devices Transfer Assistive Devices Gait Belt Front Wheeled Walker OT- Gait Assessment Gait Gait Assistance Required: Standby Assistance Assistive Devices Assistive Device Gait Belt Front Wheeled Walker Comments Gait Ability Comments from chair to bathroom OT- Balance Assessment Sitting Balance and Reactions Static Sitting Balance Ability Good Dynamic Sitting Balance Ability Good Standing Balance and Reactions Static Standing Balance Ability Good Dynamic Standing Balance Ability Fair M8 OT- IP Objective Assessments Start: 08/11/18 16:01 Freq: Status: Active Protocol: Document 08/11/18 16:01 CGR (Rec: 08/11/18 16:16 CGR [email or web address]) OT Gross Range of Motion Upper Extremity Range of Motion Assessment Within Functional Limits ROM Impairments But with pain noted to the R shoulder. OT Strength Upper Extremity Strength Assessment Within Functional Limits Comments Strength Comments R shld not tested but grossly 4/5. Noted significant brusing to the R hand. OT- Coordination Assessment Upper Extremity Finger to Nose Test Within Functional Limits Finger Tapping Test Within Functional Limits OT-Muscle Tone Assessment Muscle Tone WNL Yes OT Sensation Assessment Comments Summary Comments No deficits Edema Edema Absent M9 OT- IP Assessment and Plan Start: 08/11/18 16:01 Freq: Status: Active Protocol: Document 08/13/18 12:04 CGR (Rec: 08/13/18 12:15 CGR [email or web address]) OT Summary Assessment and Plan Potential Rehabilitation Potential Excellent Summary OT Impairments Pain Strength Balance Functional Mobility Self-Feeding Grooming Dressing Toileting Bathing Toilet Transfers Shower Transfers Progress Towards Goals Progressing Toward Goals Assessment Summary Pt showered in todays session with good safety and endurance . Pt will likely be safe for discharge home. is present throughout session and appears supportive. Goals Grooming Goal Independent Dressing Goal Independent Dressing Stick Medical Supervisor Sock Aid Toileting Goal Independent Bathing Goal Independent Toilet Transfer Goal Independent Shower Transfer Goal Independent Days to Meet Goals 1 Frequency of Treatment Frequency Of Treatment Once a Day Treatment Plan OT Treatment Plan ADL Training Functional Mobility Patient/Family Education Discharge Planning Discharge Recommendations OT Discharge Recommendations Home with Assistance Home Equipment Needs shower chair, HHSP, BSC
== END 2018-08-13 12:46 | disposition home health service (06) | DRG 481 ==
LOC: ED 22:32 → AC 08-10 00:39
PROVIDERS: Anesthesiology; Orthopaedic Surgery; Admitting Provider Student in an Organized Health Care Education/Training Program; Emergency Provider Emergency Medicine; Family Provider Family Medicine; PCP Family Medicine; Visit Provider Student in an Organized Health Care Education/Training Program
PROC: 0QS906Z Reposition Left Femoral Shaft with Intramedullary Internal Fixation Device, Open Approach (ICD-10-PCS; CPT 27245; principal; 2018-08-10 20:45)
DX: M84.651A Pathological fracture in other disease, right femur, initial encounter for fracture (principal); S22.41XA Multiple fractures of ribs, right side, initial encounter for closed fracture; S60.221A Contusion of right hand, initial encounter; S46.011A Strain of muscle(s) and tendon(s) of the rotator cuff of right shoulder, initial encounter; W01.0XXA Fall on same level from slipping, tripping and stumbling without subsequent striking against object, initial encounter; Y92.000 Kitchen of unspecified non-institutional (private) residence as the place of occurrence of the external cause; T45.8X5A Adverse effect of other primarily systemic and hematological agents, initial encounter
CPT/HCPCS: 36415; 51701; 72170; 73030; 73221; 73552; 76000; 80048; 85014; 85018; 85025; 85027; 86850; 86900; 86901; 94760; 94762; 96374; 96375; 97116; 97162; 97165; 97530; 97535; 99284; 99285; C9290; J0690; J1100; J1170; J2175; J2270; J2405; J2704; J3010

== ENCOUNTER → 2018-09-30 09:11 | Outpatient (CLI) | payer OTHER, SELFPAY ==
[2018-08-10 00:44] VITALS: BMI 166.5
--- NOTE | 2018-09-30 | DI.NM.S_ITS ---
PROCEDURE: NM BONE SCAN WHOLE BODY RADIOPHARMACEUTICAL: 19.3 mCi Tc-99m MDP IV. INDICATIONS: OTHER FRACTURE OF LEFT FEMUR TECHNIQUE: Delayed whole-body scintigrams were obtained approximately 3-4 hours after intravenous injection of radiotracer. Anterior and posterior views were acquired from vertex to feet. Additional left and right oblique views of the pelvis and femurs were obtained. COMPARISON: [facility], CR, CHEST 1 VIEW, 10/29/2008, 18:58. [facility], CR, XR FEMUR LT MIN 2V, 08/09/2018, 20:52. [facility], CR, XR FEMUR LT MIN 2V, 08/10/2018, 17:42. [facility], CR, XR FEMUR 2+ VIEWS LEFT, 08/24/2018, 16:07. [facility], CR, XR FEMUR 2+ VIEWS LEFT, 09/15/2018, 10:08. FINDINGS: There is focal uptake within the left femoral shaft corresponding to the subacute fracture seen on recent studies. There is asymmetric increased mild uptake throughout the left femoral shaft likely related to postsurgical changes. Para-articular uptake demonstrated along the knees, shoulders, and sternoclavicular joints likely representing degenerative changes. There is also increased transverse uptake within the lower lumbar spine and mid cervical spine compatible with degenerative changes. There are multiple small foci of uptake density within right posterior ribs in the superior thorax likely related to prior fractures. IMPRESSION: 1. Focal increased uptake within the left femoral shaft consistent with healing fracture seen prior studies. 2. Mild diffuse uptake within the left femur likely reflects postsurgical changes. If there is clinical suspicion for infection, consider further evaluation with a three-phase bone scan or tagged white blood cell study. 3. Multiple foci of contiguous uptake within the right posterior ribs likely represent sequelae of prior fractures. Dictated by: Ander Kim M.D. on 09/30/2018 at 16:32 Approved by: Ander Kim M.D. on 09/30/2018 at 16:47
== END ==
PROVIDERS: Family Provider Family Medicine; PCP Family Medicine; Visit Provider Orthopaedic Surgery
DX: S72.302A Unspecified fracture of shaft of left femur, initial encounter for closed fracture (principal)
CPT/HCPCS: 78306; A9503

== ENCOUNTER → 2018-10-13 14:36 | Outpatient (CLI) | payer OTHER, SELFPAY ==
[2018-08-10 00:44] VITALS: BMI 166.5
== END ==
PROVIDERS: Family Provider Family Medicine; PCP Family Medicine; Visit Provider Orthopaedic Surgery
DX: M81.0 Age-related osteoporosis without current pathological fracture (principal); Z78.0 Asymptomatic menopausal state; S72.392D Other fracture of shaft of left femur, subsequent encounter for closed fracture with routine healing; Z82.62 Family history of osteoporosis
CPT/HCPCS: 77080

== ENCOUNTER → 2019-03-07 07:47 | Outpatient (CLI) | payer OTHER, SELFPAY ==
[2018-08-10 00:44] VITALS: BMI 166.5
[2019-03-07 08:28] LABS: Add Manual Diff / Slide Review NO; Basophils Absolute Auto 0 /uL (0-100); Basophils Percent Auto 1.1 % (0-2); Eosinophils Absolute Auto 100 /uL (0-450); Eosinophils Percent Auto 2.4 % (2-4); Hematocrit 38.6 % (36-46); Hemoglobin 12.9 g/dL (12.0-16.0); Lymphocytes Absolute Auto 1300 /uL (1100-4500); Lymphocytes Percent Auto 28.8 % (25-40); Mean Corpuscular HGB Conc 33.4 % (30-36); Mean Corpuscular Hemoglobin 32.9 PG (26-34); Mean Corpuscular Volume 98.4 fL (80-100); Monocytes Absolute Auto 400 /uL (0-900); Monocytes Percent Auto 9.1 % (3-14); Neutrophils Absolute Auto 2600 /uL (1500-7000); Neutrophils Percent Auto 58.6 % (50-75); Platelet Count 252 X10^3/uL (150-400); Red Blood Cell Count 3.92 X10^6/uL (4.0-5.2); Red Cell Distribution Width 14.3 % (11.6-14.8); White Blood Cell Count 4.4 X10^3/uL (4.5-11.0)
[2019-03-07 08:42] LABS: Alanine Aminotransferase 23 IU/L (<35); Albumin 4.4 g/dL (3.5-5.0); Phosphorous 4.2 mg/dL (2.8-4.1)
[2019-03-07 09:24] LABS: Vitamin D 25 Hydroxy (D3) 48.5 ng/mL (30.0-100.0)
[2019-03-07 09:25] LABS: Free T4, Direct Thyroxine 0.96 ng/dL (0.78-2.19)
[2019-03-07 09:39] LABS: Thyroid Stimulating Hormone 4.13 uIU/mL (0.47-4.68)
[2019-03-09 15:22] LABS: Parathyroid Hormone Int 30 pg/mL (14-64)
[2019-03-15 15:23] LABS: N-Telopeptide Serum < 3.4 nM BCE (6.2-19.0)
== END ==
PROVIDERS: PCP Family Medicine; Visit Provider Internal Medicine Endocrinology, Diabetes & Metabolism
DX: M81.0 Age-related osteoporosis without current pathological fracture (principal)
CPT/HCPCS: 36415; 82040; 82306; 82310; 82523; 83970; 84100; 84439; 84443; 84460; 85025

== ENCOUNTER → 2019-03-17 07:42 | Outpatient (CLI) | payer OTHER, SELFPAY ==
[2018-08-10 00:44] VITALS: BMI 166.5
== END ==
PROVIDERS: PCP Family Medicine; Referring Provider Family Medicine; Visit Provider Family Medicine
DX: Z12.31 Encounter for screening mammogram for malignant neoplasm of breast (principal); Z53.9 Procedure and treatment not carried out, unspecified reason

== ENCOUNTER → 2019-12-04 17:00 | Outpatient (CLI) | payer OTHER, SELFPAY ==
[2018-08-10 00:44] VITALS: BMI 166.5
--- NOTE | 2019-12-04 | DI.MG.S_ITS ---
BILATERAL DIGITAL SCREENING MAMMOGRAM 3D/2D WITH CAD: 12/04/2019 CLINICAL: Routine screening. Family history of breast cancer. Comparison is made to exams dated: 03/16/2018 mammogram, 01/29/2017 mammogram, and 01/03/2016 mammogram - [facility]. There are scattered fibroglandular elements in both breasts. Current study was also evaluated with a Computer Aided Detection (CAD) system. No significant masses, calcifications, or other findings are seen in either breast. There has been no significant interval change. IMPRESSION: NEGATIVE There is no mammographic evidence of malignancy. A 1 year screening mammogram is recommended. This exam was interpreted at Station ID: [id number]. NOTE: For mammograms, a report in lay terms will be sent to the patient. Approximately 15% of breast malignancies will not be visualized mammographically. In the management of a palpable breast mass, a negative mammogram must not discourage biopsy of a clinically suspicious lesion. Electronically Signed By: Stefano rodarte/polly:12/05/2019 08:52:37 letter sent: Normal Exam ACR BI-RADS Category 1: Negative 3341F
== END ==
PROVIDERS: PCP Family Medicine; Referring Provider Family Medicine; Visit Provider Family Medicine
DX: Z12.31 Encounter for screening mammogram for malignant neoplasm of breast (principal); Z80.3 Family history of malignant neoplasm of breast
CPT/HCPCS: 77063; 77067

== ENCOUNTER → 2020-12-04 17:23 | Outpatient (CLI) | payer OTHER, SELFPAY ==
[2018-08-10 00:44] VITALS: BMI 166.5
--- NOTE | 2020-12-04 | DI.MG.S_ITS ---
BILATERAL DIGITAL SCREENING MAMMOGRAM 3D/2D WITH CAD: 12/04/2020 CLINICAL: Routine screening. Family history of breast cancer. Comparison is made to exams dated: 12/04/2019 mammogram, 03/16/2018 mammogram, 01/29/2017 mammogram, 01/03/2016 mammogram, and 12/27/2014 mammogram - [facility]. There are scattered fibroglandular elements in both breasts. Current study was also evaluated with a Computer Aided Detection (CAD) system. No significant masses, calcifications, or other findings are seen in either breast. There has been no significant interval change. IMPRESSION: NEGATIVE There is no mammographic evidence of malignancy. A 1 year screening mammogram is recommended. This exam was interpreted at Station ID: [id number]. NOTE: For mammograms, a report in lay terms will be sent to the patient. Approximately 15% of breast malignancies will not be visualized mammographically. In the management of a palpable breast mass, a negative mammogram must not discourage biopsy of a clinically suspicious lesion. Electronically Signed By: Jacob to/polly:12/05/2020 08:44:14 letter sent: Normal Exam ACR BI-RADS Category 1: Negative 3341F
== END ==
PROVIDERS: Referring Provider Family Medicine; Visit Provider Family Medicine
DX: Z12.31 Encounter for screening mammogram for malignant neoplasm of breast (principal); Z80.3 Family history of malignant neoplasm of breast
CPT/HCPCS: 77063; 77067

== ENCOUNTER → 2021-04-25 15:11 | Outpatient (CLI) | payer OTHER, SELFPAY ==
[2018-08-10 00:44] VITALS: BMI 166.5
== END ==
PROVIDERS: PCP Family Medicine; Referring Provider Internal Medicine Endocrinology, Diabetes & Metabolism; Visit Provider Internal Medicine Endocrinology, Diabetes & Metabolism
DX: Z13.820 Encounter for screening for osteoporosis (principal); M85.851 Other specified disorders of bone density and structure, right thigh; Z78.0 Asymptomatic menopausal state
CPT/HCPCS: 77080; 77081

== ENCOUNTER → 2021-12-06 09:04 | Outpatient (CLI) | payer MEDICARE, SELFPAY ==
[2018-08-10 00:44] VITALS: BMI 166.5
--- NOTE | 2021-12-06 09:07 | DI.MG.S_ITS ---
BILATERAL DIGITAL SCREENING MAMMOGRAM 3D/2D WITH CAD: 12/06/2021 CLINICAL: Routine screening. Family history of breast cancer. Comparison is made to exams dated: 12/04/2020 mammogram, 12/04/2019 mammogram, and 03/16/2018 mammogram - [facility]. There are scattered areas of fibroglandular density in both breasts (category b / 25%-50% glandular tissue). Current study was also evaluated with a Computer Aided Detection (CAD) system. No significant masses, calcifications, or other findings are seen in either breast. There has been no significant interval change. IMPRESSION: NEGATIVE There is no mammographic evidence of malignancy. A 1 year screening mammogram is recommended. Based on the Tyrer Cuzick model (a risk assessment model) the patient's lifetime risk is 7.1% and her 10 year risk is 3.6%. According to the ACR, ACS, and NCCN guidelines, an annual breast MRI exam along with mammogram is recommended if the patient's lifetime risk is 20% or greater. This exam was interpreted at Station ID: [id number]. NOTE: For mammograms, a report in lay terms will be sent to the patient. Approximately 15% of breast malignancies will not be visualized mammographically. In the management of a palpable breast mass, a negative mammogram must not discourage biopsy of a clinically suspicious lesion. Electronically Signed By: Corey bruner/polly:12/08/2021 08:16:39 letter sent: Normal Exam ACR BI-RADS Category 1: Negative 3341F
== END ==
PROVIDERS: PCP Family Medicine; Referring Provider Family Medicine; Visit Provider Family Medicine
DX: Z12.31 Encounter for screening mammogram for malignant neoplasm of breast (principal); Z80.3 Family history of malignant neoplasm of breast
CPT/HCPCS: 77063; 77067

== ENCOUNTER 2023-01-14 17:23 | Emergency (ER) | payer MEDICARE, SELFPAY ==
[2023-01-14] VITALS (9 sets, daily range): BP systolic 109–143; BP diastolic 55–81; PULSE 61–71; RESP 16–20; TEMP 36.5–37.1; O2SAT 96–99; BMI 166.5; BMI 26.4
--- NOTE | 2023-01-14 17:39 | DI.RAD.S_ITS ---
PROCEDURE: XR CHEST 1V INDICATIONS: chest pain TECHNIQUE: One view of the chest was acquired. COMPARISON: [facility], , CHEST 1 VIEW, 10/29/2008, 18:58. FINDINGS: Surgical changes and devices: None. Lungs and pleura: Lungs are clear. No pleural effusions or pneumothorax. Mediastinum: Mediastinal contours appear normal. Heart size is normal. Bones and chest wall: No suspicious bony lesions. Overlying soft tissues appear unremarkable. IMPRESSION: No acute cardiopulmonary abnormality is seen. Dictated by: Braulio Zuniga M.D. on 01/14/2023 at 18:50 Approved by: Braulio Zuniga M.D. on 01/14/2023 at 18:50
--- NOTE | 2023-01-14 18:45 | ED_ITS ---
HPI - Arrhythmia/Palpitations General Chief Complaint: Arrhythmia/Palpitations Stated Complaint: A-fib/elevated BP- came from walk in Time Seen by Provider: 01/14/23 17:53 Source: patient Mode of arrival: Ambulatory History of Present Illness HPI narrative: 67-year-old female with no significant past medical history presents from her ophthalmology office for abnormal heart rhythm. Patient underwent surgical repair of retinal tear earlier today. Patient is not know the cause of her retinal tear but denies history of diabetes. While patient was undergoing the procedure she was noted to be in atrial fibrillation with RVR with elevated blood pressure. After the procedure was finished and the patient recovered from anesthesia the patient was referred to the emergency department. Patient denies chest pain, palpitations. She states she currently feels back to her baseline. Denies any history of heart disease previously. Related Data Home Medications Medication Instructions Recorded Confirmed celecoxib 200 mg capsule 200 mg PO BID 08/09/18 08/09/18 gabapentin 300 mg capsule 300 mg PO ONCE HS 08/09/18 08/09/18 Previous Rx's Medication Instructions Recorded acetaminophen 325 mg tablet 975 mg (3 x 325 mg) PO TID #90 tabs 08/13/18 aspirin 81 mg tablet,delayed 81 mg PO BID #60 tabs 08/13/18 release oxycodone 5 mg tablet 5 mg PO Q3HR PRN Pain, Moderate 08/13/18 (4-6) #30 tabs Allergies Allergy/AdvReac Type Severity Reaction Status Date / Time amoxicillin Allergy Intermediate Rash Verified 01/14/23 17:40 azithromycin Allergy Intermediate Rash Verified 01/14/23 17:40 latex Allergy Intermediate Rash Verified 01/14/23 17:40 isotretinoin [From Accutane] Allergy Verified 01/14/23 17:40 Review of Systems Review of Systems Narrative: Negative except as noted above Patient History Medical History (Updated 01/15/23 @ 02:55 by Misty Andrews MD) Retinal tear of left eye Migraine syndrome History of basal cell carcinoma Degenerative joint disease Osteopenia Raynaud's syndrome Surgical History H/O oral surgery H/O sinus surgery H/O knee surgery Family History Father Cancer Hypertension Diverticulitis Mother Hypertension Other Heart disease Rheumatoid arthritis Social History household members: spouse Smoking Status: Never smoker alcohol intake: never Smoking Status: Never smoker alcohol intake frequency: holidays/special occasions only Substance Use Type: does not use Exam Initial Vital Signs Initial Vital Signs: Vital Signs Temperature 97.7 F 01/14/23 17:30 Pulse Rate 69 01/14/23 17:30 Respiratory Rate 17 01/14/23 17:30 Blood Pressure 143/74 H 01/14/23 17:30 Pulse Oximetry 96 01/14/23 17:30 Oxygen Delivery Method Room Air 01/14/23 17:30 Const: Awake, alert, no acute distress, nontoxic appearing Eyes: Left eye covered in dressing Cardiac: regular rate, regular rhythm RESP: unlabored, clear bilaterally, no wheezing GI: Atraumatic, soft, nontender, nondistended, no rebound, no guarding MSK: Atraumatic, full range of motion, pulses equal Skin: Warm, Dry, intact, no rashes Neuro: AO x3, CN II-XII grossly intact, moves all extremities Psych: affect normal, mood normal, not suicidal, not homicidal Course Orders Ordered: ED Orders 01/14/23 18:12 Complete Blood Count AUTO DIFF Stat Comprehensive Metabolic Panel Stat Lipase Stat Magnesium Stat PTT Partial Thromboplastin Lalo Stat Prothrombin Time INR Stat Troponin & CK Cardiac Panel Stat Vital Signs Vital signs: Vital Signs - 8 hr 01/14/23 19:00 01/14/23 19:00 01/14/23 19:30 Temperature Pulse Rate 63 Respiratory Rate 17 Blood Pressure 117/59 L 133/65 Pulse Oximetry 98 Oxygen Delivery Method 01/14/23 19:30 01/14/23 20:00 01/14/23 20:30 Temperature Pulse Rate 61 62 Respiratory Rate 17 16 Blood Pressure 140/81 Pulse Oximetry 96 96 Oxygen Delivery Method 01/14/23 20:30 01/14/23 20:43 01/14/23 20:50 Temperature 98.7 F Pulse Rate 61 Respiratory Rate 20 Blood Pressure Pulse Oximetry 96 Oxygen Delivery Method Room Air Room Air MDM - Arrhythmia/Palpitations Differential Diagnosis Differential diagnosis: Likely palpitations, anxiety, sinus tachycardia and artial fibrillation Lab Data 01/14/23 18:12 01/14/23 18:12 Labs: Lab Results 01/14/23 Range/Units 18:12 WBC 5.8 (4.5-11.0) X10^3/uL RBC 4.01 (4.0-5.2) X10^6/uL Hgb 13.1 (12.0-16.0) g/dL Hct 38.9 (36-46) % MCV 97.2 (80-100) fL MCH 32.8 (26-34) PG MCHC 33.8 (30-36) % RDW 14.0 (11.6-14.8) % Plt Count 266 (150-400) X10^3/uL Neut % (Auto) 75.3 H (50-75) % Lymph % (Auto) 16.1 L (25-40) % [place] % (Auto) 4.9 (3-14) % Eos % (Auto) 2.4 (2-4) % Baso % (Auto) 1.3 (0-2) % Neut # (Auto) 4300 (8292-3532) /uL Lymph # (Auto) 900 L (3705-6610) /uL [place] # (Auto) 300 (0-900) /uL Eos # (Auto) 100 (0-450) /uL Baso # (Auto) 100 (0-100) /uL PT 11.0 (9.4-12.5) SECONDS INR 1.0 (0.9-1.3) APTT 25 L (25.1-36.5) SECONDS Sodium 141 (137-145) mmol/L Potassium 4.4 (3.4-5.1) mmol/L Chloride 105 (98-107) mmol/L Carbon Dioxide 29 (22-32) mmol/L BUN 27 H (7-17) mg/dL Creatinine 0.67 (0.52-1.04) mg/dL Estimated GFR > 60 (>60) mL/min BUN/Creatinine Ratio 40.3 H (6-22) Glucose 125 H (80-110) mg/dL Calcium 10.0 (8.4-10.2) mg/dL Magnesium 2.3 (1.6-2.3) mg/dL Total Bilirubin 0.4 (0.2-1.3) mg/dL AST 36 (14-36) IU/L ALT 24 (<35) IU/L Alkaline Phosphatase 39 (38-126) U/L Total Creatine Kinase 42 (30-135) U/L Troponin I < 0.012 (0.01-0.034) ng/mL Total Protein 7.2 (6.3-8.2) g/dL Albumin 4.0 (3.5-5.0) g/dL Globulin 3.2 (1.7-4.1) g/dL Albumin/Globulin Ratio 1.3 (1.0-2.8) Lipase 228 (23-300) U/L MDM Narrative Medical decision making narrative: Patient incidentally found to have atrial fibrillation with rapid ventricular response at approximately 130 beats per minute while undergoing retinal tear surgery. Patient is currently normal sinus rhythm at a rate of 60 beats per minute. She denies feeling any symptoms from this arrhythmia and denies history of heart problems. EKG is normal sinus rhythm without ischemic findings in emergency department. Laboratory work is reviewed, all electrolytes are within normal limits, troponin negative. Patient has been monitored for several hours without any incidents noted on microbiology instructor. CHADS2 Vasc score 2 based age and female gender. I discussed patient's case with on-call transit mix operator Dr. Castro, who recommended initiation of low-dose beta-corey such as metoprolol. Based on recent eye surgery he agreed that anticoagulation could be deferred until further discussion with primary care physician. I discussed the results of all labs and imaging with patient and her spouse at bedside. I relayed cardiology recommendations as well as explained atrial fibrillation and the risks of this abnormal rhythm including increased risk of stroke and blood clots. Has been states that he does not feel that the risks are worth the benefit in starting a new medication and they do not want to start any new medications until they speak with her primary care physician. I stated that a low-dose beta-corey would likely be beneficial in preventing further episodes of atrial fibrillation and would likely not have critical effect on patient's blood pressure. Patient and her again declined this medication and elected to leave the emergency department without prescription in order to follow up with primary care physician. Discharge Plan Departure Patient Disposition: Home Clinical Impression: Refusal of medication Atrial fibrillation Qualifiers: Atrial fibrillation type: paroxysmal Qualified Code(s): I48.0 - Paroxysmal atrial fibrillation Instructions: DI for Atrial Fibrillation Activity Restrictions/Additional Instructions: YOU WERE SEEN TODAY FOR ATRIAL FIBRILLATION. IT WAS RECOMMENDED BY CARDIOLOGY TO START YOU ON A LOW-DOSE BETA-COREY, HOWEVER YOUR ELECTING TO DEFER THIS UNTIL YOU FOLLOW UP WITH PRIMARY CARE PHYSICIAN. PLEASE FOLLOW UP SOON POSSIBLE WITH DR. CARRILLO Prescriptions: No Action celecoxib 200 mg capsule 200 mg PO BID gabapentin 300 mg capsule 300 mg PO ONCE HS acetaminophen 325 mg Tablet 975 mg PO TID Qty: 90 0RF aspirin 81 mg Tablet,Delayed Release (Dr/Ec) 81 mg PO BID Qty: 60 0RF oxycodone 5 mg Tablet 5 mg PO Q3HR PRN (Reason: Pain, Moderate (4-6)) Qty: 30 0RF Referrals: Tommy Carrillo MD [Primary Care Provider] - Stand Alone Forms: Patient Portal/API
[2023-01-14 19:14] LABS: Add Manual Diff / Slide Review NO; Basophils Absolute Auto 100 /uL (0-100); Basophils Percent Auto 1.3 % (0-2); Eosinophils Absolute Auto 100 /uL (0-450); Eosinophils Percent Auto 2.4 % (2-4); Hematocrit 38.9 % (36-46); Hemoglobin 13.1 g/dL (12.0-16.0); Lymphocytes Absolute Auto 900 /uL (1100-4500); Lymphocytes Percent Auto 16.1 % (25-40); Mean Corpuscular HGB Conc 33.8 % (30-36); Mean Corpuscular Hemoglobin 32.8 PG (26-34); Mean Corpuscular Volume 97.2 fL (80-100); Monocytes Absolute Auto 300 /uL (0-900); Monocytes Percent Auto 4.9 % (3-14); Neutrophils Absolute Auto 4300 /uL (1500-7000); Neutrophils Percent Auto 75.3 % (50-75); Platelet Count 266 X10^3/uL (150-400); Red Blood Cell Count 4.01 X10^6/uL (4.0-5.2); White Blood Cell Count 5.8 X10^3/uL (4.5-11.0)
[2023-01-14 19:19] LABS: PTT Partial Thromboplastin Tim 25 SECONDS (25.1-36.5)
[2023-01-14 19:22] LABS: Alanine Aminotransferase 24 IU/L (<35); Albumin Globulin Ratio 1.3 (1.0-2.8); Alkaline Phosphatase 39 U/L (38-126); Aspartate Aminotransferase 36 IU/L (14-36); BUN Creatinine Ratio 40.3 (6-22); Bilirubin Total 0.4 mg/dL (0.2-1.3); Blood Urea Nitrogen 27 mg/dL (7-17); Carbon Dioxide 29 mmol/L (22-32); Chloride 105 mmol/L (98-107); Creatine Kinase 42 U/L (30-135); Estimated Glomerular Filt Rate > 60 mL/min (>60); Globulin 3.2 g/dL (1.7-4.1); Glucose 125 mg/dL (80-110); HEMOLYSIS < 15 (0-50); Lipase 228 U/L (23-300); Magnesium 2.3 mg/dL (1.6-2.3); Potassium 4.4 mmol/L (3.4-5.1); Sodium 141 mmol/L (137-145); Total Protein 7.2 g/dL (6.3-8.2)
[2023-01-14 19:33] LABS: Troponin I < 0.012 ng/mL (0.01-0.034)
== END 2023-01-14 20:50 | disposition home or self-care (01) ==
PROVIDERS: Emergency Medicine; Emergency Provider Emergency Medicine; PCP Family Medicine
DX: I48.0 Paroxysmal atrial fibrillation (principal)
CPT/HCPCS: 36415; 71045; 80053; 82550; 83690; 83735; 84484; 85025; 85610; 85730; 93005; 93010; 99283; 99284

== ENCOUNTER → 2023-02-19 07:53 | Outpatient (CLI) | payer MEDICARE, SELFPAY ==
[2023-01-14 17:24] VITALS: BMI 166.5
--- NOTE | 2023-02-19 07:55 | DI.MG.S_ITS ---
BILATERAL DIGITAL SCREENING MAMMOGRAM 3D/2D WITH CAD: 02/19/2023 CLINICAL: Routine screening. Family history of breast cancer. Comparison is made to exams dated: 12/06/2021 mammogram, 12/04/2020 mammogram, 12/04/2019 mammogram, and 03/16/2018 mammogram - [facility]. There are scattered areas of fibroglandular density in both breasts (category b / 25%-50% glandular tissue). Current study was also evaluated with a Computer Aided Detection (CAD) system. No significant masses, calcifications, or other findings are seen in either breast. There has been no significant interval change. IMPRESSION: NEGATIVE There is no mammographic evidence of malignancy. A 1 year screening mammogram is recommended. Based on the Tyrer Cuzick model (a risk assessment model) the patient's lifetime risk is 6.7% and her 10 year risk is 3.5%. According to the ACR, ACS, and NCCN guidelines, an annual breast MRI exam along with mammogram is recommended if the patient's lifetime risk is 20% or greater. This exam was interpreted at Station ID: [id number]. NOTE: For mammograms, a report in lay terms will be sent to the patient. Approximately 15% of breast malignancies will not be visualized mammographically. In the management of a palpable breast mass, a negative mammogram must not discourage biopsy of a clinically suspicious lesion. Electronically Signed By: Jacob to/polly:02/19/2023 12:21:38 letter sent: Normal Exam ACR BI-RADS Category 1: Negative [id number]
== END ==
PROVIDERS: PCP Family Medicine; Referring Provider Family Medicine; Visit Provider Family Medicine
DX: Z12.31 Encounter for screening mammogram for malignant neoplasm of breast (principal); Z80.3 Family history of malignant neoplasm of breast; R92.323 Mammographic fibroglandular density, bilateral breasts
CPT/HCPCS: 77063; 77067

== ENCOUNTER → 2023-04-27 15:18 | Outpatient (CLI) | payer MEDICARE, SELFPAY ==
[2023-01-14 17:24] VITALS: BMI 166.5
--- NOTE | 2023-04-27 | DI.RAD.S_ITS ---
Bone Density Report Name: DANTE GARIBAY Age: 67 Sex: Female Ethnicity: White Date of : 1955 Indication: postmenopausal osteoporosis; monitoring treatment; prior fracture; Referring Provider: ADALID KRUSE Study: Bone densitometry was performed. Exam Date: April 27, 2023 Accession number: [id number] Bone Density: Region BMD T-score Z-score Classification AP Spine(L1-L4) 1.066 0.2 2.1 Normal Femoral Neck (Right) 0.671 -1.6 0.1 Osteopenia Total Hip (Right) 0.695 -2.0 -0.6 Osteopenia Total Forearm (Left) 0.438 -2.6 -0.8 Osteoporosis 1/3 Forearm (Left) 0.509 -3.1 -1.2 Osteoporosis UD Forearm (Left) 0.355 -1.5 -0.2 Osteopenia World Health Organization criteria for BMD impression classify patients as: Normal (T-score at or above -1.0), Osteopenia (T-score between -1.0 and -2.5), or Osteoporosis (T-score at or below -2.5). 10-year Fracture Risk: FRAX not reported because: Prior hip or vertebral fracture Treated for osteoporosis Previous Exams: -- Region Exam Age BMD T-score BMD Change BMD Change Date g/cm2 vs Baseline vs Previous -- AP Spine (L1-L4) 04/27/2023 67 1.066 0.2 0.189 (21.5%)# 0.086 (8.7%)* 04/25/2021 65 0.981 -0.6 0.103 (11.8%)# 0.066 (7.2%)# 10/13/2018 63 0.915 -1.2 0.037 (4.2%)* -0.055 (-5.7%)* 06/05/2016 61 0.970 -0.7 0.092 (10.5%)* 0.095 (10.9%)* 02/02/2014 58 0.875 -1.6 -0.003 (-0.3%) -0.059 (-6.3%)* 07/01/2011 56 0.934 -1.0 0.056 (6.4%)* 0.127 (15.8%)* 06/17/2009 54 0.806 -2.2 -0.071 (-8.1%)* -0.071 (-8.1%)* 03/03/2007 51 0.877 -1.5 Total Hip(Right) 04/27/2023 67 0.695 -2.0 -0.136 (-16.4%)# 0.020 (2.9%)# 04/25/2021 65 0.675 -2.2 -0.156 (-18.8%)# -0.049 (-6.7%)# 10/13/2018 63 0.724 -1.8 -0.107 (-12.9%)* -0.004 (-0.5%) 06/05/2016 61 0.727 -1.8 -0.104 (-12.5%)* 0.001 (0.2%) 02/02/2014 58 0.726 -1.8 -0.105 (-12.6%)* -0.079 (-9.8%)* 07/01/2011 56 0.805 -1.1 -0.026 (-3.1%) 0.022 (2.7%) 06/17/2009 54 0.783 -1.3 -0.048 (-5.7%)* -0.048 (-5.7%)* 03/03/2007 51 0.831 -0.9 1/3 Forearm(Left) 04/27/2023 67 0.509 -3.1 0.004 (0.8%) 0.004 (0.8%) 04/25/2021 65 0.506 -3.1 -- *Denotes significance at 95% confidence level, LSC for AP Spine = 0.022 g/cm2, LSC for Total Hip = 0.027 g/cm2, LSC for 1/3 Forearm = 0.023 g/cm2 # Denotes dissimilar scan types or analysis methods Impression: The patient has low bone mass, based on the Right Total Hip T-score. The patient has risk factors, including: previous fracture. No significant bone loss was observed. Discussion: PATIENT UNDER TREATMENT WITH NO SIGNIFICANT BMD LOSS SINCE LAST EXAM. In an untreated patient, BMD typically declines with age. A lack of decline or gain is usually a sign that treatment is efficacious and fracture risk is reduced. It is important to ask patients whether they are taking their medications and to encourage continued and appropriate compliance with their osteoporosis therapies to reduce fracture risk. It is also important to review their risk factors and encourage appropriate calcium and vitamin D intakes, exercise, fall prevention and other lifestyle measures. Follow-Up: Consider a repeat BMD and Vertebral Fracture Assessment (VFA) exam in 2 years or sooner if medically necessary, to reassess this patient's status. Reported by: SAMANTHA PENN M.D. on 04/27/2023 3:42:00 PM.
== END ==
PROVIDERS: PCP Family Medicine; Referring Provider Student in an Organized Health Care Education/Training Program; Visit Provider Student in an Organized Health Care Education/Training Program
DX: M81.0 Age-related osteoporosis without current pathological fracture (principal)
CPT/HCPCS: 77080; 77081